=== PATIENT | female | born 1950 | race Caucasian/White ===

== ENCOUNTER 2016-10-05 10:52 | Inpatient (IN) | payer MEDICARE ==
[2016-10-05] MEDS ORDERED: Morphine INJ* 2 MG/ML 1 ML SYRINGE IV PRN (12:41)
[2016-10-05] MEDS: NS 0.9% 1000 ML* 1,000 ML IV SCH (13:27)
[2016-10-05] MEDS ORDERED: Ondansetron INJ* 2 MG/ML VIAL IV PRN (13:30)
[2016-10-05] MEDS ORDERED: Albuterol 2.5 MG/3 ML NEB.SOL* (0.083%) INH PRN (13:59)
[2016-10-05] MEDS ORDERED: Pantoprazole IV* 40 MG IV SCH (14:00)
[2016-10-05] MEDS: Heparin VIAL(*) 5000 UNITS/ML VIAL (FIVE THOUSAND) SUBCUT SCH ×2 (14:59→20:48)
[2016-10-05] MEDS: Metoprolol Tartrate IV* 1 MG/ML 5 ML VIAL IV SCH ×2 (14:59→20:47)
[2016-10-05 15:28] LABS: Hematocrit 32 % (35-47); Hemoglobin 9.9 g/dl (12.0-16.0); Mean Corpuscular HGB Conc 31 g/dl (31-36); Mean Corpuscular Hemoglobin 27 pg (27-31); Mean Corpuscular Volume 85 fL (80-97); Mean Platelet Volume 9 um3 (7.4-10.4); Red Blood Count 3.72 10^6/ul (4.0-5.4); Red Cell Distribution Width 15 % (10.5-15); White Blood Count 7.3 10^3/ul (3.5-10.8)
--- NOTE | 2016-10-05 15:28 | HP ---
HISTORY AND PHYSICAL: ADDENDUM: Ms. Means is a 66-year-old female with history of obesity, status post laparoscopic gastri c band placement and later on in 2005, she had also gastric bypass surgery as well as revision of th e above mentioned surgeries who presented to the [facility] complaining of nausea, vomiting, and abdominal pain. She was transferred from [facility] to our facility after she was noted to have elevated liver function tests as well as lipase. She is being admitted to our facility. e is going to be placed on electronic device monitor bed since she complained of chest pain with her nausea for further monitoring. As per [facility], her troponin was negative and EKG unremarkable . The patient is also going to be consulted by Surgery. At this point, the presumed diagnosis may be small bowel obstruction due to pancreatitis. She may need an MRCP to evaluate her common bile duct. She is status post cholecystectomy in the past. For further details of the patient's presentation and plan, please see history and physical dictated by Cedric Nascimento on 10/05/16, with which I agree. [id number]/[facility] #: [id number]
[2016-10-05 15:39] LABS: Albumin 3.8 g/dL (3.2-5.2); BUN/Creatinine Ratio 17.4 (8-20); Calcium 8.5 mg/dL (8.6-10.3); EGFR African American 84.9 (>60); Globulin 2.3 g/dL (2-4); Potassium 4.4 mmol/L (3.5-5.0); Total Bilirubin 0.7 mg/dL (0.2-1.0); Total Protein 6.1 g/dL (6.4-8.9)
--- NOTE | 2016-10-05 16:01 | CONS ---
CC: Dr. Jodie Resendiz; [facility] SURGICAL CONSULTATION REPORT: DATE OF CONSULT: 10/05/16 LOCATION: The patient seen in room 419. HISTORY OF PRESENT ILLNESS: I was contacted by the hospitalist service to evaluate Ms. Josefa Means, a 66-year-old female, who presented to the [facility] earlier today with acute onset of upper abdominal pain accompanied with nausea, vomiting, and retching. She was admitted and transferred to our hospital for surgical consultation. The patient describes being in a regular good health until yesterday approximately 4 p.m. She start ed with nausea and vomiting. This again advanced her retching after she emptied from vomiting. The vomitus consisted only of liquids, was nonbloody, nonbilious. The patient denied any previous karen lar symptoms. She is status post open gastric bypass procedure in the 90s out of [place]. She had do ne well for the most part, losing weight and keeping it off. The patient denies any fevers or chills. Her pain is relieved with narcotics and currently, she fee ls a lot better. She has been passing flatus and had a recent small bowel movement while in the [facility]. The patient is also complaining of onset of chest pain and this has led to cardiac workup and the pa tient will be transferred to telemetry unit shortly. The patient took 81 mg of aspirin hoping it would help her with her discomfort, it did not make a di fference. Pain was nonradiating, mostly in the epigastrium and left upper quadrant. She describes being bloated. PAST MEDICAL HISTORY: Hypertension, anxiety, hypothyroidism, morbid obesity. PAST SURGICAL HISTORY: Appendectomy, hysterectomy, cholecystectomy, open gastric bypass procedure w ith followup abdominoplasty with complication of wound infection after the abdominoplasty which took place approximately 7 years ago. The patient has completely healed from that. She has also had kn ee surgery and breast reduction. MEDICATIONS: Hospital medication list was reviewed, does include: 1. Heparin IV and Zofran which we will discontinue. 2. She is on famotidine. SOCIAL HISTORY: She lives with her . She is a nonsmoker. She is retired. REVIEW OF SYSTEMS: No shortness of breath. No fevers or chills. No visual disturbances. Chest pa in as described. No palpitations however. GI symptoms as described. No dysuria. No bleeding or c lotting disorders. The patient has poor exercise tolerance, can walk up a flight of stairs only. N o change in bowel habits. PHYSICAL EXAM: She is afebrile. Vital signs are stable here in the hospital. Review of the [facility] chart at [place] was also suggestive of afebrile course. She is alert and oriented x3. She is in no apparent distress, lying on the bed comfortable. Head, ears, eyes, nose, and throat: Normoceph alic, atraumatic. Sclerae anicteric. Mucous membranes are moist. Neck: No lymphadenopathy. Abdome n is soft, obese. She does have a BMI of 43. She is tender on both light and deep palpation in the mid epigastrium and at the left upper quadrant with bloating and hyperactive bowel sounds in the le ft upper quadrant. Negative rebound. Healed upper midline incision. Healed but signs of prolonged scarring at the lower abdominal wound. No hernias are appreciated. Rectal Exam: Not performed. Mild CVA tenderness on the left. Extremities: Within normal limits with no pitting edema. No calf tenderness. DIAGNOSTIC STUDIES/LAB DATA: Labs were performed at [place] and these were reviewed and they inclu de an H and H of 12/40 with a white count of 9. Alk phos and transaminase is mildly elevated. BUN and creatinine ratio of 18 with a creatinine of 1.1. The patient underwent a CT scan of the abdomen and pelvis with p.o. and IV contrast. These images w ere reviewed. There were no reconstructions. We could appreciate a gastric pouch extending to a sm all bowel loop that would be the Jamia limb. The patient's stomach remnant does show air and fluid. The small bowel otherwise is not significantly dilated. There is contrast extending to the cecum. There is no free fluid. Small seroma in the subcutaneous space. On coronal views, it does appear that the pancreatic limb is mildly dilated. There is no contrast i n this at least at the duodenal level. IMPRESSION: Over 20 years status post open gastric bypass procedure with acute onset of abdominal p ain and retching that seems to be subsiding, unclear etiology. The patient does not appear to be obs tructed based on symptoms of bowel movements and passage of flatus; however, I am concerned about th e possibility of an internal hernia. Plan will be for watchful waiting, IV fluids, and n.p.o. statu s. I would like to review the CT scan with the radiology department here. We should repeat her lab s including a lipase level as there was question about this being elevated. We should look toward e followup x-ray tomorrow morning. I would like her to avoid antiemetics. She should get narcotics as needed. No need for NG tube placement given the patient's gastric bypass status. We will watch her closely. She does represent a complex patient with a complex abdomen and surgical history, but may require exploratory laparotomy and this would represent a significant procedure with high risks in this patient. Plan for now is watchful waiting. She shows no signs of sepsis and we will follow along closely. [id number]/[facility] #: [id number]
[2016-10-05] MEDS: Morphine INJ* 4 MG/ML 1 ML SYRINGE IV PRN (18:25)
--- NOTE | 2016-10-05 19:09 | HP ---
HISTORY AND PHYSICAL: DATE OF ADMISSION: 10/05/16 PRIMARY CARE PROVIDER: Dr. Resendiz. ATTENDING PHYSICIAN WHILE IN THE HOSPITAL: Dr. Yecenia Ram* (report being dictated by Cedric Nascimento, COLLEEN). CHIEF COMPLAINT: 1. Abdominal pain. 2. Nausea and vomiting. 3. Chest pain. HISTORY OF PRESENTING ILLNESS: Ms. Means is a 66-year-old female patient. She has a history of hypertension, anxiety, depression, hypothyroidism, peptic ulcer disease, history of a mild KS in the past requiring no stents, and history of TAWANNA, wears CPAP with O2 at night. She comes in to the [facility] today stating that around yesterday afternoon she started having some abdominal discomfort around 4 to 5 o'clock. She said the pain got much worse last night. She started vomiting. She felt the pain was a sharp, stabbing, lightning bolt of pain in the center of her abdomen, that got progressively worse throughout the night and she started vomiting. She vomited she thinks about 20 times. She states she also was not only having some chest discomfort in the middle of the night last night, that was described as a pressure in her chest down her arm with associated nausea, vomiting, with the abdominal pain had come first. She said that she had been feeling more bloated than normal. She went to [facility], was evaluated and ultimately a CT scan did show a small bowel obstruction. The patient was transferred to the [facility]. It was reported by [facility] that the patient's lipase was 600, although I do not see this on the labs here. The patient denies chest pain currently. She states she is still having some abdominal pain, it is mostly in the center of her abdomen. She states that she did have a bowel movement when she got here at [facility] and states that the discomfort was improved with the morphine. She was evaluated at [facility]. We were asked to evaluate for admission. She denies having any shortness of breath. Denies having any cough or fevers. Denies having any chills. REVIEW OF SYSTEMS: There is no documented fever. She denied having any significant weight change. There was no double vision. No ear discharge. She denies having any rhinorrhea. No sore throat. No thyroid enlargement. There was chest pain from HPI. There was abdominal pain from HPI. There was some episode of nausea and vomiting from HPI. No dysuria, no frequency. No seizure. No loss of consciousness. Review of 14 systems completed, all others negative. PAST MEDICAL HISTORY: Significant for: 1. Hypertension. 2. Anxiety. 3. Depression. 4. Hypothyroidism. 5. Peptic ulcer disease. 6. History of KS. 7. TAWANNA. 8. Chronic pain. PAST SURGICAL HISTORY: Includes: 1. Appendectomy. 2. Cholecystectomy. 3. Hernia repair. 4. Gastric bypass. 5. Breast reduction. 6. Abdominal wound that required 1 year of wound care followup and took 1 year to heal according to the patient from a previous abdominal surgery. 7. Right knee arthroscopy. 8. Hysterectomy. 9. Right lower extremity ORIF. MEDICATIONS: Home meds include: 1. Atarax 50 mg at bedtime as needed. 2. Percocet 1 tablet p.o. every 4 hours as needed. 3. Valium 10 mg p.o. every 8 hours as needed. 4. Coreg 6.25 mg p.o. b.i.d. 5. Remeron 45 mg at bedtime. 9. Reglan 10 mg p.o. every 6 hours as needed. 10. Synthroid 75 mcg daily. 11. Amlodipine 5 mg p.o. b.i.d. 12. Zoloft 100 mg p.o. daily. 13. Morphine ER 120 mg p.o. b.i.d. 14. Lisinopril 20 mg p.o. daily. ALLERGIES TO MEDICATIONS: Include HALDOL, MUCINEX, BACTRIM. FAMILY HISTORY: The mother had a history of KS and diabetes, father had a history of diabetes. SOCIAL HISTORY: She is a former smoker. She does not drink alcohol. She has no children. Surrogate decision maker is her . PHYSICAL EXAMINATION GENERAL: At this time, Ms. Means is a 66-year-old female patient. She is sitting in the hospital bed, she does not appear to be in any acute distress. VITAL SIGNS: Blood pressure 137/77, pulse of 85, respirations 16, O2 sat 98%, temperature 97.4 . HEENT: Head is atraumatic and normocephalic. Eyes: EOMs are intact. Sclerae anicteric and not pale. Throat: Oral mucosa appears to be moist. No oropharyngeal erythema. NECK: Supple. LUNGS: Clear to auscultation bilaterally. No wheezes, rales, or rhonchi. HEART: Sounds S1, S2. Regular rate and rhythm. No murmurs, rubs, or gallops. ABDOMEN: Obese. There was tender in the left lower quadrant and the right upper quadrant. Bowel sounds were hypoactive. EXTREMITIES: Pulses were 2+ throughout. No peripheral edema. She has 5/5 strength. NEUROLOGIC: She is awake, alert, and oriented x3. Speech is clear. Tongue midline. No gross focal deficits. No facial droop. SKIN: Intact. She does have an old abdominal scarring to the midline of her abdomen. DIAGNOSTIC STUDIES/LAB DATA: Revealed sodium 139, potassium 4.2, chloride of 104, bicarb 22, BUN 20, creatinine 1.1, glucose 148, mag 1.7, AST 297, ALT 94, alk phos 275, CK 44, CK-MB 1.7. Troponin 0.01. BNP is 33. Albumin 4.6. PTT was 11. INR of 1.07. WBC 9.1, RBC 4.49, hemoglobin 12.2, hematocrit of 39.6, platelet count of 176. She had a CT of the abdomen and pelvis, it showed impression, postsurgical and chronic changes as described above with evidence of new proximal small bowel obstruction as described. She had an EKG which showed a normal sinus rhythm with a rate of 78, no ST elevations or T-wave inversions were noted. It was reviewed with an EKG from 4 years ago and it appears to be similar. Old medical records were reviewed. ASSESSMENT AND PLAN: Ms. Means is a 66-year-old female patient, originally presented to [facility] with complaints of abdominal discomfort. Under report from [facility], there was report that her lipase was in the 600, but I do not see that on the paperwork that came over. In addition to this, there is again the CT scan that shows small bowel obstruction. She should be admitted under inpatient status for: 1. Small bowel obstruction, abdominal pain. Again, I am going to repeat her labs over here at [facility] to reevaluate her amylase and lipase. Certainly, she could have pancreatitis contributing to the abdominal pain, also is a question of obstruction. I do think to start, we will get surgical evaluation. She is not vomiting now. She states her pain feels better, but she is pretty tender on exam. My plan would be to hold on NG tube until surgical evaluation. We will go head and give her antiemetics, pain management, IV fluids, and await report labs and continue to follow. 2. Chest pain. At this point, I will cycle troponins. We will get an echo as well and we will get an EKG, place her on telemetry and we will monitor. 3. Hypertension. She will be on IV Lopressor. 4. Anxiety and depression. Continue supportive care. 5. Hypothyroid. She should be on IV Synthroid. 6. Peptic ulcer disease. I have ordered PPI via IV. 7. Obstructive sleep apnea, I have ordered CPAP. 8. DVT prophylaxis. She is on heparin subcu. 9. Code status. Full code. 10. Fluids, electrolytes and nutrition. She is NPO pending surgical evaluation. TIME SPENT: On the admission was approximately 70 minutes, greater than half the time was spent [id number] with the patient obtaining my history and physical, other half time was spent going over the plan of care with the patient and implementing plan of care. I discussed the plan of care with my attending, Dr. Ram, she is in agreement. CEDRIC NASCIMENTO NP ADDENDUM TO HISTORY AND PHYSICAL: Ms. Means is a 66-year-old female with history of obesity, status post laparoscopic gastric band placement and later on in 2005, she had also gastric bypass surgery as well as revision of the above mentioned surgeries who presented to the [facility] complaining of nausea, vomiting, and abdominal pain. She was transferred from [facility] to our facility after she was noted to have elevated liver function tests as well as lipase. She is being admitted to our facility. She is going to be placed on scaffolding helper bed since she complained of chest pain with her nausea for further monitoring. As per [facility], her troponin was negative and EKG unremarkable there. The patient is also going to be consulted by Surgery. At this point, the presumed diagnosis may be small bowel obstruction due to pancreatitis. She may need an MRCP to evaluate her common bile duct. She is status post cholecystectomy in the past. For further details of the patient's presentation and plan, please see history and physical dictated by Cedric Nascimento on 10/05/16, with which I agree. Yecenia Ram MD CC: Dr. Resendiz; Dr. Duarte* [id number] #: [id number] #: [id number] [facility] HOSPITALElodia
[2016-10-06] MEDS: Morphine INJ* 4 MG/ML 1 ML SYRINGE IV PRN ×7 (00:26→21:50)
[2016-10-06] MEDS: NS 0.9% 1000 ML* 1,000 ML IV SCH ×3 (00:28→17:08)
[2016-10-06] MEDS: Metoprolol Tartrate IV* 1 MG/ML 5 ML VIAL IV SCH ×3 (02:14→13:26)
[2016-10-06 05:20] LABS: Hematocrit 28 % (35-47); Hemoglobin 8.9 g/dl (12.0-16.0); Mean Corpuscular HGB Conc 32 g/dl (31-36); Mean Corpuscular Hemoglobin 27 pg (27-31); Mean Corpuscular Volume 85 fL (80-97); Mean Platelet Volume 10 um3 (7.4-10.4); Red Blood Count 3.25 10^6/ul (4.0-5.4); Red Cell Distribution Width 15 % (10.5-15); White Blood Count 4.9 10^3/ul (3.5-10.8)
[2016-10-06 05:25] LABS: Albumin 3.4 g/dL (3.2-5.2); BUN/Creatinine Ratio 15.5 (8-20); Calcium 8.4 mg/dL (8.6-10.3); EGFR African American 87.2 (>60); EGFR Non-African American 67.8 (>60); Globulin 2.1 g/dL (2-4); Potassium 3.8 mmol/L (3.5-5.0); Total Bilirubin 0.8 mg/dL (0.2-1.0); Total Protein 5.5 g/dL (6.4-8.9)
[2016-10-06] MEDS: Levothyroxine INJ* 100 MCG/5 ML VIAL IV SCH (06:06)
[2016-10-06] MEDS: Heparin VIAL(*) 5000 UNITS/ML VIAL (FIVE THOUSAND) SUBCUT SCH ×3 (06:08→21:50)
[2016-10-06] MEDS ORDERED: Perflutren Lipid Microsphere* 3 ML VIAL ONE (08:05)
[2016-10-06] MEDS ORDERED: Pneumococcal Vac Polyvalent* 0.5 ML VIAL IM ONE (09:00)
--- NOTE | 2016-10-06 09:17 | ECHO ---
Patient: JENNIFER MENDEZ [facility] Rec#: [id number] : 1950 Date: 10/06/2016 Age: 66y Height: 152.4 cm / 60.0 in Weight: 99.34 kg / 218.9 lbs Sex: F BSA: 1.94 Room#: [facility] Admit Date#: 10/05/2016 Type: Inpatient Referring: Cedric Nascimento NP Reading: Demetrius Esquivel MD Ballet Teacher: Shannon Mosqueda,CARMELLACS,RDMS CC: Marlen Resendiz MD Transthoracic Echocardiogram Indication: CP BP: 151/88 HR: 55 Rhythm: NSR with PACs Indications Chest Pain Findings History: HTN, heart murmur, family history of heart disease Technical Comments: The study is technically limited due to poor acoustic windows. Completed 0945 Left Ventricle: The left ventricular chamber size is normal. Mild concentric left ventricular hypertrophy is observed. Global left ventricular wall motion and contractility are within normal limits. The estimated ejection fraction is 55-60%. There is no consistent Doppler evidence of clinically significant diastolic dysfunction. Left Atrium: The left atrial chamber size is normal. Right Ventricle: The right ventricular chamber size and systolic function are within normal limits. Right Atrium: The right atrial cavity size is normal. Aortic Valve: The aortic valve is trileaflet. The aortic valve leaflets are mildly thickened. There is no evidence of aortic regurgitation. There is mild aortic stenosis. The mean gradient of the aortic valve is 8 mmHg. The aortic valve area, by peak velocities, is calculated at 1.6 cm2. Mitral Valve: The mitral valve leaflets are mildly thickened. There is mild mitral regurgitation. There is no evidence of mitral stenosis. Tricuspid Valve: The tricuspid valve leaflets are normal. There is mild tricuspid regurgitation. There is evidence of mild pulmonary hypertension. Pulmonic Valve: The pulmonic valve structure is not well visualized. Pericardium: There is no significant pericardial effusion. Aorta: The ascending aorta is not well visualized. There is no dilatation of the aortic arch. There is no dilation of the aortic root. Pulmonary Artery: The main pulmonary artery is not well visualized. Venous: The inferior vena cava is not visualized. Contrast: Definity was used to optimize study. A total of 3 ml was used. Conclusions The study is technically limited due to poor acoustic windows. Contrast was used to define LV systolic function. Mild concentric left ventricular hypertrophy is observed. Global left ventricular wall motion and contractility are within normal limits. The estimated ejection fraction is 55-60% in limited views. No significvant valvular disease: There is mild aortic stenosis. The mean gradient of the aortic valve is 8 mmHg. There is mild mitral regurgitation. There is mild tricuspid regurgitation. There is evidence of mild pulmonary hypertension. Measurements Name Value Normal Range RVIDd (AP) 2D 2.4 cm (0.9 - 2.6) RVDdMajor (2D) 3.3 cm (2.2 - 4.4) RAd ISD 4CH 4.5 cm (3.4 - 4.9) RA (A4C)W 4.4 cm (2.9 - 4.6) IVSd (2D) 1.4 cm (0.6 - 1) LVPWd (2D) 1.1 cm (0.6 - 1) LVIDd (2D) 3.2 cm (3.6 - 5.4) LVIDs (2D) 2.5 cm - LV FS (2D) 23 % (25 - 45) Aortic Annulus 2.1 cm (1.4 - 2.6) Ao root diameter (2D) 2.6 cm (2.1 - 3.5) Aortic arch 3 cm (1.8 - 3.4) LA dimension (AP) 2D 3.9 cm (2.3 - 3.8) LAd ISD 4CH 4.6 cm (2.9 - 5.3) LA ISD 4CH W 4.3 cm (2.5 - 4.5) Name Value Normal Range LA ESV SP 4CH (A/L) 71.03 ml - LA ESV SP 2CH (A/L) 40.48 ml - LA ESV BP (A/L) 55.45 ml - LA ESV BP (A/L) index 29 ml/m2 - LA ESV SP 4CH (MOD) 67.55 ml - LA ESV SP 2CH (MOD) 38.1 ml - Name Value Normal Range MV E-wave Vmax 1.2 m/sec - MV deceleration time 209 msec - MV A-wave Vmax 0.9 m/sec - MV E:A ratio 13 ratio - P. vein S-wave Vmax 0.5 m/sec - P. vein D-wave Vmax 0.5 m/sec - P. vein A-wave duration 125 msec - LV septal e' Vmax 0.08 m/sec - LV lateral e' Vmax 0.09 m/sec - LV E:e' septal ratio 15 ratio - LV E:e' lateral ratio 13.4 ratio - Name Value Normal Range AV Vmax 2.1 m/sec - AV VTI 48.1 cm - AV peak gradient 18 mmHg - AV mean gradient 8 mmHg - LVOT diameter 2 cm - LVOT Vmax 1.1 m/sec - LVOT VTI 22.3 cm - LVOT peak gradient 5 mmHg - LVOT mean gradient 2.2 mmHg - DOI (VTI) 0.5 ratio - GOKUL (continuity Vmax) 1.6 cm2 - GOKUL (continuity VTI) 1.5 cm2 - EVAN Vmax 0.7 m/sec - Name Value Normal Range MV Vmax 1.4 m/sec - MV VTI 40 cm - MV peak gradient 8 mmHg - MV mean gradient 1.4 mmHg - MV PHT 52 msec - MVA (PHT) 4.2 cm2 - Name Value Normal Range TR Vmax 2.9 m/sec - TR peak gradient 34 mmHg - RAP 8 mmHg - RVSP 42 mmHg - Name Value Normal Range PV Vmax 0.8 m/sec - PV peak gradient 2.6 mmHg -
[2016-10-06] MEDS: Morphine TAB Extended Release (*) 15 MG TAB.ER PO SCH ×2 (10:47→22:59)
--- NOTE | 2016-10-06 11:10 | RAD ---
INDICATION: Small bowel obstruction, follow-up. COMPARISON: Correlation is made with a prior outside CT of the abdomen and pelvis from October 05, 2016. TECHNIQUE: Supine and upright views of the abdomen were obtained. FINDINGS: Contrast is seen in nondistended colon from the prior CT study. There is mild small bowel distention which is improved from the prior study consistent with a resolving small bowel obstruction. No free intraperitoneal air is seen. There are multiple surgical clips and sutures in the left upper quadrant and surgical clips within the pelvis. IMPRESSION: FINDINGS MOST CONSISTENT WITH A RESOLVING SMALL BOWEL OBSTRUCTION.
--- NOTE | 2016-10-06 12:50 | PN ---
Progress Note - Progress Note SOAP: Subjective: Pt eleonora dn examined earlier today. She remains NPO. She feels much better than yesterday, but still with upper abdominal pain requiring round the clock narcotics. Positve flatus. No BM Urine is dark in color. She has no appetite Objective: af vss abdo: obese/distended/tender on palpation at upper abdomen. NO rebound normoactive BS Labs reviewed. lipase elevated; normal wbc Assessment: s/p gastric bypass, with sudden onset of abdominal pain, now with dilated biliopancreatic limb in pt with complex abdominal surgical history. 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 Plan: PO pain control Pt would benefit from drainage of stomach remnant. I've recommended percutaneous procedure with IR, and discussed this with Dr Rivera. Likely on schedule.
[2016-10-06] MEDS: LORazepam INJ* 2 MG/ML 1 ML VIAL IV PUSH PRN ×2 (14:43→19:49)
--- NOTE | 2016-10-06 17:40 | PN ---
Subjective Date of Service: 10/06/16 Interval History: Denies flatus or BM Abdominal pain controlled with IV morphine but requiring every 3-4 hrs No appetite No N/V, CP, SOB Objective Active Medications: Albuterol (Ventolin 2.5 Mg/3 Ml Neb.Aminah*) 2.5 mg INH Q2H PRN PRN Reason: SOB/WHEEZING Last Admin: 10/06/16 06:05 Dose: 2.5 mg Heparin Sodium (Porcine) (Heparin Vial(*)) 5,000 units SUBCUT Q8HR [facility] Last Admin: 10/06/16 13:49 Dose: 5,000 units Sodium Chloride (Ns 0.9% 1000 Ml*) 1,000 mls @ 125 mls/hr IV PER RATE [facility] Last Admin: 10/06/16 17:08 Dose: 125 mls/hr Famotidine 20 mg/ Sodium (Chloride) 102 mls @ 408 mls/hr IVPB DAILY [facility] Last Admin: 10/06/16 08:37 Dose: 408 mls/hr Levothyroxine Sodium (Synthroid Inj*) 37.5 mcg IV 0600 [facility] Last Admin: 10/06/16 06:06 Dose: 37.5 mcg Lorazepam (Ativan Inj*) 0.5 mg IV PUSH Q4H PRN PRN Reason: ANXIETY Last Admin: 10/06/16 14:43 Dose: 0.5 mg Metoprolol Tartrate (Lopressor Iv*) 5 mg IV Q6H [facility] Last Admin: 10/06/16 13:26 Dose: Not Given Morphine Sulfate (Ms Contin(*)) 15 mg PO Q12H [facility] Last Admin: 10/06/16 10:47 Dose: 15 mg Morphine Sulfate (Morphine Inj (Syringe)*) 4 mg IV Q3H PRN PRN Reason: PAIN Last Admin: 10/06/16 15:41 Dose: 4 mg Ondansetron HCl (Zofran Inj*) 4 mg IV Q6H PRN PRN Reason: NAUSEA Vital Signs 10/05/16 10/05/16 10/05/16 18:25 19:24 19:25 Temperature 99.0 F Pulse Rate 71 Respiratory 16 14 17 Rate Blood Pressure 140/79 (mmHg) O2 Sat by Pulse 94 Oximetry 10/05/16 10/05/16 10/05/16 20:00 20:11 23:28 Temperature 98.8 F 97.5 F Pulse Rate 70 64 Respiratory 17 18 20 Rate Blood Pressure 136/64 134/75 (mmHg) O2 Sat by Pulse 94 98 Oximetry 10/06/16 10/06/16 10/06/16 00:26 01:26 04:01 Temperature 97.9 F Pulse Rate 63 Respiratory 18 17 20 Rate Blood Pressure 139/76 (mmHg) O2 Sat by Pulse 99 Oximetry 10/06/16 10/06/16 10/06/16 04:54 05:54 06:08 Temperature Pulse Rate 56 Respiratory 18 20 Rate Blood Pressure (mmHg) O2 Sat by Pulse 99 Oximetry 10/06/16 10/06/16 10/06/16 07:15 08:32 08:59 Temperature 98.5 F Pulse Rate 59 Respiratory 17 18 16 Rate Blood Pressure 151/88 (mmHg) O2 Sat by Pulse 97 97 Oximetry 10/06/16 10/06/16 10/06/16 09:51 09:59 10:47 Temperature 98.3 F Pulse Rate 61 Respiratory 16 16 Rate Blood Pressure 151/79 (mmHg) O2 Sat by Pulse 97 Oximetry 10/06/16 10/06/16 10/06/16 12:00 12:17 12:35 Temperature 98.0 F Pulse Rate 57 55 Respiratory 16 16 17 Rate Blood Pressure 162/72 (mmHg) O2 Sat by Pulse 98 97 Oximetry 10/06/16 10/06/16 10/06/16 13:35 14:43 15:12 Temperature 98.7 F Pulse Rate 59 Respiratory 15 22 14 Rate Blood Pressure 179/73 (mmHg) O2 Sat by Pulse 95 Oximetry 10/06/16 10/06/16 10/06/16 15:41 15:49 17:06 Temperature Pulse Rate Respiratory 15 15 Rate Blood Pressure 158/73 (mmHg) O2 Sat by Pulse Oximetry Oxygen Devices in Use Now: None Appearance: NAD Eyes: No Scleral Icterus, PERRLA Ears/Nose/Mouth/Throat: Clear Oropharnyx, - - dry Neck: NL Appearance and Movements; NL JVP Respiratory: Symmetrical Chest Expansion and Respiratory Effort, Clear to Auscultation Cardiovascular: RRR Abdominal: - - soft, TTP greatest left upper/lower, hypoactive BS on right, no rebound/guarding Lymphatic: No Cervical Adenopathy, No Axillary Adenopathy Extremities: - - trace LE edema Neurological: Alert and Oriented x 3 Result Diagrams: 10/06/16 04:58 10/06/16 04:43 Microbiology and Other Data: Microbiology 10/05/16 12:44 Nasal Screen MRSA (PCR)(DARNELL) - Final Nasal Mrsa Negative Assess/Plan/Problems-Billing Assessment: 66 yo F h/o multiple surgeries including gastric bypass p/w N/V, abdominal pain with c/f afferent limb syndrome - Patient Problems (1) Afferent loop syndrome Comment: Plan perc drainage of stomach remnant tomorrow NPO pain control (2) TAWANNA (obstructive sleep apnea) Comment: CPAP (3) Chest pain Comment: ADAN negative (4) Hypertension Comment: hydralazine SBP >180 or DBP> 110 (5) DVT prophylaxis Comment: HSQ
[2016-10-06] MEDS ORDERED: Metoprolol Tartrate IV* 1 MG/ML 5 ML VIAL IV PRN (17:42)
[2016-10-06] MEDS: hydrALAZINE IV* 20 MG/ML VIAL IV SLOW PU PRN (19:53)
[2016-10-07] MEDS: LORazepam INJ* 2 MG/ML 1 ML VIAL IV PUSH PRN ×3 (00:23→18:02)
[2016-10-07] MEDS: Morphine INJ* 4 MG/ML 1 ML SYRINGE IV PRN ×3 (01:57→08:34)
[2016-10-07] MEDS: NS 0.9% 1000 ML* 1,000 ML IV SCH ×2 (01:59→10:07)
[2016-10-07] MEDS: Levothyroxine INJ* 100 MCG/5 ML VIAL IV SCH (05:25)
[2016-10-07] MEDS: Heparin VIAL(*) 5000 UNITS/ML VIAL (FIVE THOUSAND) SUBCUT SCH (05:26)
[2016-10-07] MEDS ORDERED: Famotidine IV* 10 MG/ML 2 ML (20 mg) ONE (08:26)
[2016-10-07] MEDS: HYDROmorphone* 1 MG/ML 1 ML SYR IV SLOW PU PRN ×4 (10:12→21:08)
[2016-10-07] MEDS: Morphine TAB Extended Release (*) 15 MG TAB.ER PO SCH ×2 (11:14→22:24)
[2016-10-07 12:18] LABS: Hematocrit 29 % (35-47); Mean Corpuscular HGB Conc 31 g/dl (31-36); Mean Corpuscular Hemoglobin 27 pg (27-31); Mean Corpuscular Volume 85 fL (80-97); Mean Platelet Volume 9 um3 (7.4-10.4); Red Blood Count 3.39 10^6/ul (4.0-5.4); Red Cell Distribution Width 15 % (10.5-15); White Blood Count 3.6 10^3/ul (3.5-10.8)
[2016-10-07] MEDS: hydrALAZINE IV* 20 MG/ML VIAL IV SLOW PU PRN (14:55)
[2016-10-07] MEDS ORDERED: fentaNYL* 50 MCG/ML 5 ML VIAL (250 MCG VIAL) ONE (15:18)
[2016-10-07] MEDS ORDERED: Midazolam* 1 MG/ML 5 ML VIAL (5 MG) ONE (15:19)
--- NOTE | 2016-10-07 15:31 | PN ---
Subjective Date of Service: 10/07/16 Interval History: Pt seen with at bedside Discussed care with Dr. Duarte and radiology department Abdominal pain increasing. Morphine no longer helping. Increased to dilaudid with relief. No N/V while NPO. Feels increasingly bloated Objective Active Medications: Albuterol (Ventolin 2.5 Mg/3 Ml Neb.Aminah*) 2.5 mg INH Q2H PRN PRN Reason: SOB/WHEEZING Last Admin: 10/06/16 06:05 Dose: 2.5 mg Hydralazine HCl (Apresoline Iv*) 5 mg IV SLOW PU Q6H PRN PRN Reason: SYSTOLIC BP GREATER THAN: Last Admin: 10/06/16 19:53 Dose: 5 mg Hydromorphone HCl (Dilaudid Iv*) 1 mg IV SLOW PU Q3H PRN PRN Reason: PAIN Last Admin: 10/07/16 13:16 Dose: 1 mg Famotidine 20 mg/ Sodium (Chloride) 102 mls @ 408 mls/hr IVPB DAILY [facility] Last Admin: 10/07/16 08:33 Dose: 408 mls/hr Sodium Chloride (Ns 0.9% 1000 Ml*) 1,000 mls @ 75 mls/hr IV PER RATE [facility] Last Admin: 10/07/16 10:07 Dose: 75 mls/hr Levothyroxine Sodium (Synthroid Inj*) 37.5 mcg IV 0600 [facility] Last Admin: 10/07/16 05:25 Dose: 37.5 mcg Lorazepam (Ativan Inj*) 0.5 mg IV PUSH Q4H PRN PRN Reason: ANXIETY Last Admin: 10/07/16 12:13 Dose: 0.5 mg Metoprolol Tartrate (Lopressor Iv*) 5 mg IV Q6H PRN PRN Reason: HEART RATE/PULSE GREATER THAN: Morphine Sulfate (Ms Contin(*)) 15 mg PO Q12H [facility] Last Admin: 10/07/16 11:14 Dose: 15 mg Ondansetron HCl (Zofran Inj*) 4 mg IV Q6H PRN PRN Reason: NAUSEA Vital Signs 10/06/16 10/06/16 10/06/16 15:41 15:49 17:06 Temperature Pulse Rate Respiratory 15 15 Rate Blood Pressure 158/73 (mmHg) O2 Sat by Pulse Oximetry 05/04/1410/06/16 10/06/16 18:45 19:30 19:45 Temperature 98.5 F Pulse Rate 52 Respiratory 16 14 15 Rate Blood Pressure 184/93 (mmHg) O2 Sat by Pulse 97 Oximetry 10/06/16 10/06/16 10/06/16 19:49 20:00 20:42 Temperature Pulse Rate Respiratory 15 15 14 Rate Blood Pressure 188/94 155/85 (mmHg) O2 Sat by Pulse Oximetry 10/06/16 10/06/16 10/06/16 21:50 22:59 23:43 Temperature 97.6 F Pulse Rate 58 Respiratory 16 16 20 Rate Blood Pressure 168/84 (mmHg) O2 Sat by Pulse 100 Oximetry 10/07/16 10/07/16 10/07/16 00:23 01:57 03:50 Temperature 97.3 F Pulse Rate 54 Respiratory 16 14 20 Rate Blood Pressure 155/71 (mmHg) O2 Sat by Pulse 99 Oximetry 10/07/16 10/07/16 10/07/16 05:25 06:25 07:49 Temperature 97.7 F Pulse Rate 56 Respiratory 15 16 16 Rate Blood Pressure 161/88 (mmHg) O2 Sat by Pulse 96 Oximetry 10/07/16 10/07/16 10/07/16 08:00 08:34 09:34 Temperature Pulse Rate Respiratory 18 18 18 Rate Blood Pressure (mmHg) O2 Sat by Pulse 96 Oximetry 10/07/16 10/07/16 10/07/16 09:58 10:12 11:12 Temperature Pulse Rate 56 Respiratory 22 18 16 Rate Blood Pressure (mmHg) O2 Sat by Pulse 97 Oximetry 10/07/16 10/07/16 10/07/16 11:14 11:27 12:13 Temperature 97.9 F Pulse Rate 48 Respiratory 16 16 16 Rate Blood Pressure 177/78 (mmHg) O2 Sat by Pulse 96 Oximetry 10/07/16 10/07/16 10/07/16 13:13 13:14 13:16 Temperature Pulse Rate Respiratory 16 16 16 Rate Blood Pressure (mmHg) O2 Sat by Pulse Oximetry Oxygen Devices in Use Now: None Appearance: in pain, NAD Eyes: No Scleral Icterus, PERRLA Ears/Nose/Mouth/Throat: Clear Oropharnyx, Mucous Membranes Moist Neck: NL Appearance and Movements; NL JVP, Trachea Midline Respiratory: Symmetrical Chest Expansion and Respiratory Effort, Clear to Auscultation Cardiovascular: NL Sounds; No Murmurs; No JVD, RRR Abdominal: - - +bs on left, decreased on right, distended on left, TTP greatest LUQ, no rebound/guarding Lymphatic: No Cervical Adenopathy Extremities: No Edema, No Clubbing, Cyanosis Skin: No Rash or Ulcers Neurological: Alert and Oriented x 3 Result Diagrams: 10/07/16 12:03 10/06/16 04:43 Microbiology and Other Data: Microbiology 10/05/16 12:44 Nasal Screen MRSA (PCR)(DARNELL) - Final Nasal Mrsa Negative Assess/Plan/Problems-Billing Assessment: 66 yo F h/o multiple surgeries including gastric bypass p/w N/V, abdominal pain with c/f afferent limb syndrome - Patient Problems (1) Afferent loop syndrome Comment: Plan perc drainage of stomach remnant today with Dr. Rivera NPO pain control w/ dilaudid (2) TAWANNA (obstructive sleep apnea) Comment: CPAP (3) Chest pain Comment: ADAN negative (4) Hypertension Comment: Pain contributing hydralazine SBP >180 or DBP> 110 (5) Depression Comment: restart meds when can tolerate PO (6) DVT prophylaxis Comment: HSQ
[2016-10-07 18:45] LABS: ALT 23 U/L (7-52); AST 28 U/L (13-39); Albumin 3.6 g/dL (3.2-5.2); Alkaline Phosphatase 155 U/L (34-104); Anion Gap 10 mmol/L (2-11); BUN/Creatinine Ratio 14.5 (8-20); Blood Urea Nitrogen 10 mg/dL (6-24); CO2 Carbon Dioxide 20 mmol/L (22-32); Calcium 8.7 mg/dL (8.6-10.3); Chloride 108 mmol/L (101-111); EGFR African American 109.5 (>60); EGFR Non-African American 85.1 (>60); Globulin 2.4 g/dL (2-4); Glucose 75 mg/dL (70-100); Lipase < 10 U/L (11.0-82.0); Potassium 3.3 mmol/L (3.5-5.0); Sodium 138 mmol/L (133-145)
[2016-10-08] MEDS: HYDROmorphone* 1 MG/ML 1 ML SYR IV SLOW PU PRN ×2 (00:26→19:31)
[2016-10-08] MEDS: LORazepam INJ* 2 MG/ML 1 ML VIAL IV PUSH PRN ×2 (00:31→19:33)
[2016-10-08] MEDS: HYDROmorphone* 2 MG/ML 1 ML SYR IV SLOW PU PRN ×6 (03:30→22:34)
[2016-10-08] MEDS: Levothyroxine INJ* 100 MCG/5 ML VIAL IV SCH (05:35)
[2016-10-08] MEDS: NS 0.9% 1000 ML* 1,000 ML IV SCH ×2 (05:45→22:35)
[2016-10-08 06:55] LABS: Hematocrit 30 % (35-47); Hemoglobin 9.6 g/dl (12.0-16.0); Mean Corpuscular HGB Conc 32 g/dl (31-36); Mean Corpuscular Hemoglobin 27 pg (27-31); Mean Corpuscular Volume 84 fL (80-97); Mean Platelet Volume 9 um3 (7.4-10.4); Red Blood Count 3.54 10^6/ul (4.0-5.4); Red Cell Distribution Width 15 % (10.5-15); White Blood Count 5.4 10^3/ul (3.5-10.8)
[2016-10-08] MEDS: Morphine TAB Extended Release (*) 15 MG TAB.ER PO SCH ×2 (10:23→22:32)
--- NOTE | 2016-10-08 11:31 | PN ---
Progress Note - Progress Note SOAP: Subjective: C/o left sided abdominal pain radiating LUQ to LLQ, unchanged since admission. +BM/flatus. Objective: Vital Signs Temp 97.6 F 10/08/16 03:24 Pulse 71 10/08/16 03:24 Resp 18 10/08/16 10:44 BP 170/86 10/08/16 03:24 Pulse Ox 98 10/08/16 03:24 NAD, lying in bed. Abd: obese, multiple scars, tender throughout. Intake & Output 10/07/16 10/08/16 10/08/16 18:59 06:59 18:59 Intake Total 739 714 Output Total 1150 200 Balance -411 514 Intake: IV Fluids 739 714 Famotidine 60 NS (0.9%) 679 714 Output: Urine 1150 200 Other: # Bowel Movements 1 Estimated Stool Amount Medium # Voids 2 Laboratory Results - last 24 hr 10/07/16 10/07/16 10/07/16 12:03 12:03 18:25 WBC 3.6 RBC 3.39 L Hgb 9.0 L Hct 29 L MCV 85 MCH 27 MCHC 31 RDW 15 Plt Count 109 L MPV 9 Neut % (Auto) 54.9 Lymph % (Auto) 33.0 [place] % (Auto) 8.5 Eos % (Auto) 2.7 Baso % (Auto) 0.9 Absolute Neuts (auto) 2.0 Absolute Lymphs (auto) 1.2 Absolute Monos (auto) 0.3 Absolute Eos (auto) 0.1 Absolute Basos (auto) 0 Absolute Nucleated RBC 0 Nucleated RBC % 0.1 APTT 33.4 Sodium 138 Potassium 3.3 L Chloride 108 Carbon Dioxide 20 L Anion Gap 10 BUN 10 Creatinine 0.69 Est GFR ( Amer) 109.5 Est GFR (Non-Af Amer) 85.1 BUN/Creatinine Ratio 14.5 Glucose 75 Calcium 8.7 Total Bilirubin 0.90 AST 28 ALT 23 Alkaline Phosphatase 155 H Total Protein 6.0 L Albumin 3.6 Globulin 2.4 Albumin/Globulin Ratio 1.5 Lipase < 10 L 10/08/16 06:15 WBC 5.4 RBC 3.54 L Hgb 9.6 L Hct 30 L MCV 84 MCH 27 MCHC 32 RDW 15 Plt Count 123 L MPV 9 Neut % (Auto) 60.5 Lymph % (Auto) 28.6 [place] % (Auto) 7.6 Eos % (Auto) 2.4 Baso % (Auto) 0.9 Absolute Neuts (auto) 3.3 Absolute Lymphs (auto) 1.5 Absolute Monos (auto) 0.4 Absolute Eos (auto) 0.1 Absolute Basos (auto) 0 Absolute Nucleated RBC 0.01 Nucleated RBC % 0.2 APTT Sodium Potassium Chloride Carbon Dioxide Anion Gap BUN Creatinine Est GFR ( Amer) Est GFR (Non-Af Amer) BUN/Creatinine Ratio Glucose Calcium Total Bilirubin AST ALT Alkaline Phosphatase Total Protein Albumin Globulin Albumin/Globulin Ratio Lipase CT abd/pelvis from 10/07/16 images reviewed Assessment: resolved SBO in a complex surgical patient, s/p open RYGB and multiple hernia surgeries. No evidence of abdominal wall hernia or internal hernia seen on my review of the CT scan. Plan: Trial of po intake and slowly advance as tolerated.
--- NOTE | 2016-10-08 14:04 | PN ---
Subjective Date of Service: 10/08/16 Interval History: +BM overnight Pain increasing and dialudid increased from 1 to 2 mg with relief No drain placed yesterday into remnant as it was completely collapsed. Objective Active Medications: Albuterol (Ventolin 2.5 Mg/3 Ml Neb.Aminah*) 2.5 mg INH Q2H PRN PRN Reason: SOB/WHEEZING Last Admin: 10/06/16 06:05 Dose: 2.5 mg Hydralazine HCl (Apresoline Iv*) 5 mg IV SLOW PU Q6H PRN PRN Reason: SYSTOLIC BP GREATER THAN: Last Admin: 10/07/16 14:55 Dose: 5 mg Hydromorphone HCl (Dilaudid Iv*) 1 mg IV SLOW PU Q3H PRN PRN Reason: PAIN Last Admin: 10/08/16 00:26 Dose: 1 mg Hydromorphone HCl (Dilaudid Iv*) 2 mg IV SLOW PU Q3H PRN PRN Reason: PAIN Last Admin: 10/08/16 13:09 Dose: 2 mg Famotidine 20 mg/ Sodium (Chloride) 102 mls @ 408 mls/hr IVPB DAILY [facility] Last Admin: 10/08/16 08:30 Dose: 408 mls/hr Sodium Chloride (Ns 0.9% 1000 Ml*) 1,000 mls @ 75 mls/hr IV PER RATE [facility] Last Admin: 10/08/16 05:45 Dose: 75 mls/hr Levothyroxine Sodium (Synthroid Inj*) 37.5 mcg IV 0600 [facility] Last Admin: 10/08/16 05:35 Dose: 37.5 mcg Lorazepam (Ativan Inj*) 0.5 mg IV PUSH Q4H PRN PRN Reason: ANXIETY Last Admin: 10/08/16 00:31 Dose: 0.5 mg Metoprolol Tartrate (Lopressor Iv*) 5 mg IV Q6H PRN PRN Reason: HEART RATE/PULSE GREATER THAN: Morphine Sulfate (Ms Contin(*)) 15 mg PO Q12H [facility] Last Admin: 10/08/16 10:23 Dose: 15 mg Ondansetron HCl (Zofran Inj*) 4 mg IV Q6H PRN PRN Reason: NAUSEA Vital Signs 10/07/16 10/07/16 10/07/16 17:32 18:00 18:02 Temperature Pulse Rate 63 Respiratory 20 18 Rate Blood Pressure (mmHg) O2 Sat by Pulse 97 Oximetry 10/07/16 10/07/16 10/07/16 18:53 19:00 19:02 Temperature 98 F Pulse Rate 64 Respiratory 18 17 17 Rate Blood Pressure 171/81 (mmHg) O2 Sat by Pulse 100 Oximetry 10/07/16 10/07/16 10/07/16 19:18 19:36 20:00 Temperature 98.1 F Pulse Rate Respiratory 18 14 Rate Blood Pressure (mmHg) O2 Sat by Pulse Oximetry 10/07/16 10/07/16 10/07/16 21:00 21:08 22:08 Temperature Pulse Rate 62 Respiratory 14 17 17 Rate Blood Pressure (mmHg) O2 Sat by Pulse 98 Oximetry 10/07/16 10/07/16 10/08/16 22:24 22:31 00:00 Temperature 98.3 F Pulse Rate 61 Respiratory 17 20 Rate Blood Pressure 161/75 (mmHg) O2 Sat by Pulse 99 99 Oximetry 10/08/16 10/08/16 10/08/16 00:02 00:24 00:26 Temperature 98.2 F Pulse Rate 66 Respiratory 20 20 20 Rate Blood Pressure 143/72 (mmHg) O2 Sat by Pulse 99 Oximetry 10/08/16 10/08/16 10/08/16 00:31 01:26 01:31 Temperature Pulse Rate Respiratory 18 18 18 Rate Blood Pressure (mmHg) O2 Sat by Pulse Oximetry 10/08/16 10/08/16 10/08/16 03:24 03:30 06:27 Temperature 97.6 F Pulse Rate 71 Respiratory 20 20 18 Rate Blood Pressure 170/86 (mmHg) O2 Sat by Pulse 98 Oximetry 10/08/16 10/08/16 10/08/16 06:36 06:40 07:40 Temperature Pulse Rate Respiratory 18 18 17 Rate Blood Pressure (mmHg) O2 Sat by Pulse Oximetry 10/08/16 10/08/16 10/08/16 09:57 10:23 10:44 Temperature Pulse Rate Respiratory 18 15 18 Rate Blood Pressure (mmHg) O2 Sat by Pulse Oximetry 10/08/16 10/08/16 10/08/16 11:38 12:23 12:48 Temperature 98.1 F Pulse Rate 68 Respiratory 18 Rate Blood Pressure (mmHg) O2 Sat by Pulse 96 97 Oximetry 10/08/16 10/08/16 12:50 13:09 Temperature Pulse Rate 65 Respiratory 18 18 Rate Blood Pressure (mmHg) O2 Sat by Pulse 95 Oximetry Oxygen Devices in Use Now: None Appearance: NAD Eyes: No Scleral Icterus, PERRLA Ears/Nose/Mouth/Throat: NL Teeth, Lips, Gums, Clear Oropharnyx, Mucous Membranes Moist Neck: NL Appearance and Movements; NL JVP, Trachea Midline Respiratory: Symmetrical Chest Expansion and Respiratory Effort, Clear to Auscultation Cardiovascular: RRR Abdominal: - - soft. mil distention left, TTP throughout, hypoactive BS Extremities: No Edema Skin: No Rash or Ulcers Neurological: Alert and Oriented x 3 Result Diagrams: 10/08/16 06:15 10/07/16 18:25 Microbiology and Other Data: Microbiology 10/05/16 12:44 Nasal Screen MRSA (PCR)(DARNELL) - Final Nasal Mrsa Negative Assess/Plan/Problems-Billing Assessment: 66 yo F h/o multiple surgeries including gastric bypass p/w N/V, abdominal pain with c/w afferent limb syndrome - Patient Problems (1) Afferent loop syndrome Comment: no perc drainage of stomach remnant because stomach was decompressed advance diet pain control w/ dilaudid (2) TAWANNA (obstructive sleep apnea) Comment: CPAP (3) Chest pain Comment: ADAN negative (4) Hypertension Comment: Pain contributing hydralazine SBP >180 or DBP> 110 (5) Depression Comment: restart meds when can tolerate PO (6) DVT prophylaxis Comment: HSQ
[2016-10-09] MEDS: hydrALAZINE IV* 20 MG/ML VIAL IV SLOW PU PRN ×2 (00:51→12:04)
[2016-10-09] MEDS: HYDROmorphone* 2 MG/ML 1 ML SYR IV SLOW PU PRN ×2 (01:41→07:33)
[2016-10-09] MEDS: Levothyroxine INJ* 100 MCG/5 ML VIAL IV SCH (05:42)
[2016-10-09] MEDS: LORazepam INJ* 2 MG/ML 1 ML VIAL IV PUSH PRN (07:32)
[2016-10-09 07:56] VITALS: BP 181/79
[2016-10-09] MEDS ORDERED: HYDROmorphone TAB* 2 MG PO PRN (09:32)
[2016-10-09] MEDS ORDERED: Ondansetron ODT TAB* 4 MG PO PRN (09:33)
[2016-10-09] MEDS: Morphine TAB Extended Release (*) 15 MG TAB.ER PO SCH (10:36)
[2016-10-09] MEDS ORDERED: Famotidine IV* 10 MG/ML 2 ML (20 mg) ONE (10:52)
[2016-10-09] MEDS ORDERED: Diazepam TAB(*) 10 MG PO PRN (11:09)
[2016-10-09] MEDS ORDERED: hydrOXYzine HCL TAB* 50 MG PO PRN (11:10)
[2016-10-09] MEDS ORDERED: Carvedilol TAB* 6.25 MG PO SCH (21:00)
[2016-10-09] MEDS ORDERED: Mirtazapine TAB* 15 MG PO SCH (21:00)
[2016-10-09] MEDS ORDERED: amLODIPine TAB* 5 MG PO SCH (21:00)
--- NOTE | 2016-10-10 03:06 | DS ---
DISCHARGE SUMMARY: DATE OF ADMISSION: 10/05/16 DATE OF DISCHARGE: 10/09/16 PRIMARY CARE PROVIDER: Dr. Adams. PRIMARY DIAGNOSIS: Afferent loop syndrome/small bowel obstruction. SECONDARY DIAGNOSES: Include: 1. Obstructive sleep apnea. 2. Chest pain. 3. Hypertension. 4. Depression. 5. Chronic pain syndrome. 6. Anxiety. 7. Depression. 8. Hypothyroidism. MEDICATIONS AT DISCHARGE: 1. Hydroxyzine 50 mg at bedtime as needed. 2. Percocet 5/325 one tab every 4 hours as needed for pain. 3. Diazepam 10 mg 3 times a day as needed for anxiety. 4. Carvedilol 6.25 mg twice daily. 5. Remeron 45 mg at bedtime. 6. Reglan 10 mg p.o. every 6 hours as needed. 7. Levothyroxine 75 mcg in the morning. 8. Amlodipine 5 mg twice daily. 9. Zoloft 100 mg daily. 10. Lisinopril 20 mg daily. 11. Ondansetron ODT 4 mg every 6 hours as needed for nausea. 12. Morphine ER 15 mg twice daily. 13. Hydromorphone 2 mg every 6 hours as needed for pain, dispensed 12 tabs. PERTINENT LABORATORY DATA: Lipase 201 on presentation, less than 10 prior to discharge. AST on presentation 122, on discharge 28. HISTORY OF PRESENT ILLNESS AND HOSPITAL COURSE: This is a 66-year-old female with past medical history as outlined in the history of present illness on the day of admission, presented to the hospital after being transferred from [place] with abdominal pain, nausea and vomiting. Of note, she has a CAT scan that has been scanned into our computer, it will not result if looking under her current visit, but needs to be viewed under PACS. This abdominal film was reviewed with Dr. Duarte as well as the radiologist, who were concerned for an afferent loop syndrome, status post previous gastric bypass. She has made n.p.o. and treated conservatively with pain medications as well as IV fluids. There was some concern that her stomach remnant needs to be drained. She was seen in conjunction with Dr. Rivera who brought her to insert a drain; however, CT imaging prior to procedure indicated decompression of her stomach and nothing to drain. That night prior to discharge, she had 2 bowel movements. She was advanced to clear liquids the day prior to discharge and tolerated them well with another bowel movement and flatus. The day of discharge, she was advanced to full liquids, tolerated it well. No nausea, vomiting. Continued to have flatus. Her pain was improved, although not resolved. She felt that she would be more comfortable at home taking her own medications. I advised her that she had been on high doses of Dilaudid, and she may undergo some element of withdrawal if stopped abruptly. This was the risk that she was willing to take. I advised her that I will only give her 3 days of Dilaudid to leave and she felt comfortable with this plan. We had discussed at length with the patient and her who will be cooking her foods and appropriate diet and how to advance from full liquids to soft regular diet. The patient and her were able to appropriately communicate this information back to this author. It should be noted that the patient had recent some significant stress in her life recently including the of multiple friends and family. She was seen in conjunction with [facility] for counseling, may benefit from continued counseling as an outpatient. At followup, please; 1. Evaluate for continue resolution of symptoms. 2. No other specific labs or vitals that need followup. Reasons to return to the hospital including, but not limited to, recurrent or worsening symptoms, nausea, vomiting, chest pain, shortness of breath, loss of consciousness, near loss of consciousness, abdominal bloating, bleeding from any source, inability to obtain or tolerate medications were discussed with the patient and her ; they acknowledged understanding. TIME SPENT: Greater than 60 minutes was spent on discharge of this patient, greater than half was spent [id number] with the patient. CC: Dr. Adams; Dr. Marlen Resendiz * [id number]/[facility] #: [id number] [facility]
[2016-10-10] MEDS ORDERED: Sertraline* 100 MG TAB PO SCH (09:00)
[2016-10-10] MEDS ORDERED: Lisinopril TAB* 10 MG PO SCH (09:00)
== END 2016-10-09 15:35 | disposition home or self-care (01) | DRG 390 ==
LOC: MED 12:17 → MEDTELE 15:36
PROVIDERS: ADMIT Internal Medicine; ATTEND Internal Medicine
DX: K56.60 Unspecified intestinal obstruction (principal); K27.9 Peptic ulcer, site unspecified, unspecified as acute or chronic, without hemorrhage or perforation; G47.33 Obstructive sleep apnea (adult) (pediatric); R07.9 Chest pain, unspecified; I10 Essential (primary) hypertension; F32.9 Major depressive disorder, single episode, unspecified; G89.4 Chronic pain syndrome; F41.9 Anxiety disorder, unspecified; E03.9 Hypothyroidism, unspecified; Z98.84 Bariatric surgery status; I25.2 Old myocardial infarction; Z79.899 Other long term (current) drug therapy; Z88.8 Allergy status to other drugs, medicaments and biological substances; Z83.3 Family history of diabetes mellitus; Z82.49 Family history of ischemic heart disease and other diseases of the circulatory system; Z87.891 Personal history of nicotine dependence
CPT/HCPCS: 36415; 74020; 74176; 80053; 82150; 83690; 84484; 85025; 85610; 85730; 87641; 90732; 93306; 94640; 94660; 94760; A9270-GY; J0360; J1170; J1644; J2060; J2250; J2270; J3010

== ENCOUNTER 2018-06-04 07:30 | Inpatient (IN) | payer MEDICARE ==
[2018-06-15] MEDS ORDERED: Buffered Lidocaine 1% SYRIN* 1 ML/SYRINGE INTRADERM ONE (12:59)
[2018-06-18] MEDS ORDERED: Vancomycin(*) 1,250 MG in NS 0.9% 250 ML* 250 ML IVPB SCH ×2
[2018-06-18] MEDS ORDERED: Gabapentin CAP(*) 300 MG PO ONE (06:00)
[2018-06-18] MEDS ORDERED: Famotidine IV* 10 MG/ML 2 ML (20 mg) IV ONE (06:00)
[2018-06-18] MEDS ORDERED: Lactated Ringers 1000 ML Bag* 1,000 ML IV SCH (06:00)
[2018-07-30] MEDS ORDERED: Vancomycin(*) 1,250 MG in NS 0.9% 250 ML* 250 ML IVPB SCH ×2
[2018-07-30] MEDS ORDERED: Tranexamic Acid 1,000 MG in NS 0.9% 50 ML* (outpatient use) IV SCH ×2
[2018-09-07] MEDS ORDERED: Buffered Lidocaine 1% SYRIN* 1 ML/SYRINGE INTRADERM ONE (10:50)
[2018-09-10] MEDS ORDERED: Tranexamic Acid 1,000 MG in NS 0.9% 50 ML* (outpatient use) IV SCH ×2
[2018-09-10] MEDS ORDERED: Vancomycin(*) 1,250 MG in NS 0.9% 250 ML* 250 ML IVPB SCH ×2
[2018-09-10] MEDS ORDERED: Famotidine IV* 10 MG/ML 2 ML (20 mg) IV ONE (06:00)
[2018-09-10] MEDS ORDERED: Lactated Ringers 1000 ML Bag* 1,000 ML IV SCH (06:00)
[2018-09-10] MEDS ORDERED: Famotidine IV* 10 MG/ML 2 ML (20 mg) ONE (07:38)
--- OUTSIDE RECORDS SUMMARY | 2018-09-10 08:00 | XMS REPORT | Continuity of Care Document ---
:1950 External Reference #:[id number] Author Name Marci Li Care Team Providers Name Role Phone Marlen Resendiz MD Primary Care Physician Unavailable Payers Date Identification Numbers Payment Provider Subscriber Effective: 2014 Policy Number: [id number] Medicare Blue Ppo Jennifer Mendez PayID: [id number] [address] [address] [place] [address] Expires: 2016 Policy Number: [id number] Medicaid Jennifer Mendez Group Name: 1 1 [address] PayID: [id number] [place] [address] Expires: 2014 Policy Number: [id number] Medicare Blue Ppo Jennifer Mendez PayID: [id number] [address] [address] [place] [address] Advance Directives Description No Information Available Problems Date Description Provider Status Onset: 05/08/2018 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 Active Onset: 03/06/2018 Localized, primary osteoarthritis Marc Lima M.D. Active Onset: 08/30/2016 Knee pain Marc Lima M.D. Active Family History Date Family Member(s) Observation Comments General Congestive Heart Failure (CHF) General NE General Heart Disease General Breast Cancer Social History Type Date Description Comments Sex Unknown Lives With Occupation Retired ETOH Use Denies alcohol use Tobacco Use Start: Unknown End: Unknown Patient is a former smoker Smoking Status Reviewed: 08/14/18 Patient is a former smoker Allergies, Adverse Reactions, Alerts Date Description Reaction Status Severity Comments 11/21/2014 Haldol Active 11/21/2014 Bactrim hives Active 11/21/2014 Lyrica suicidal ideations Active 08/30/2016 Azithromycin Active 08/30/2016 Musinex Active Medications Medication Date Status Form Strength Qnty SIG Indications Ordering Provider Valium Active Tablets 10mg 1 tablet by Unknown /0000 mouth tid Norvasc Active Tablets 5mg 1 by mouth Unknown /0000 bid Coreg Active Tablets 6.25mg 1 by mouth Unknown /0000 twice a day Levothyroxine Active Tablets 75mcg 1 by mouth Unknown Sodium /0000 every day Lisinopril Active Tablets 20mg 1 by mouth Unknown /0000 bid Clotrimazole Active Cream 1% apply twice Unknown /0000 daily Ventolin HFA Active Aerosol 108(90Bas 2 puffs by Unknown /0000 e) mouth four mcg/Act times a day as needed Percocet Active Tablets 10-325mg 1 tab by Unknown /0000 mouth every 6 hours as needed pain Ondansetron HCL Active Tablets 8mg take 1 by Unknown /0000 mouth as need 1-2 x per day for nausea Ranitidine HCL Active Tablets 150mg take one Unknown /0000 tablet @ pm Gabapentin Active Capsules 100mg 1 capsule Unknown /0000 at hs when needed for burning in feet Zolpidem Tartrate Active Tablets 10mg 1 tab by Unknown /0000 mouth every night at bedtime as needed Docusate Sodium Active Tablets 100mg 1 cap am Unknown /0000 and pm Aripiprazole Active Tablets 2mg 1 tab in am Unknown /0000 Mirtazapine Active Tablets 45mg take 1 Unknown /0000 Dispers tablets by mouth at bedtime Hydroxyzine HCL Active Tablets 25mg 2 at hs Unknown /0000 Benadryl Active 1 12.5 mg Unknown /0000 med cup at hs Aspirin 81 Low Active Chewtabs 81mg 1 by mouth Unknown Dose /0000 every day Augmentin 07/23 Hx Tablets 875-125mg 10tab take 1 by s mouth twice Janie, - a day for 5 M.D. Cipro 05/30 Hx Tablets 250mg 6tabs take one tab twice a Janie, - day for M.D. 07/30 three Ciprofloxacin HCL 05/28 Hx Tablets 500mg 14tab Take 1 tab s bid x 7 Janie, - days until M.D. 07/30 Vistaril Hx Capsules 50mg 2 by mouth Unknown /0000 once a day - 09/05 Remeron Hx Tablets 35mg 1 by mouth Unknown /0000 at bedtime - 03/26 Zoloft Hx Tablets 100mg 1 by mouth Unknown /0000 every day - 09/26 Lidocaine Hx Ointment 5% apply Unknown /0000 sparingly - to affected 08/01 area up to 3 times daily as needed Bactroban Hx Cream 2% apply to Unknown /0000 affected - area three 08/08 times a day /2016 Ambien Hx Tablets 10mg 1 by mouth Unknown /0000 every night - at bedtime 09/26 as needed /2017 sleep insomnia Hydrochlorothiazid Hx Capsules 12.5mg 1 by mouth Unknown e /0000 every day - 08/01 Reglan Hx Tablets 10mg take 1 Unknown /0000 tablet by - mouth as 12/04 needed bid /2017 MS Contin Hx Tablets 60mg 1 by mouth Unknown /0000 ER bid - 09/26 Hydrocodone-Acetam Hx Tablets 5-325mg 2 tabs by Unknown inophen /0000 mouth as - needed bid. 08/08 Ferrousul Hx Tablets 325(65Fe) once daily Unknown /0000 mg - 12/04 Lasix Hx Tablets 20mg 1 by mouth Unknown /0000 every day - 03/29 Mupirocin Calcium Hx Cream 2% apply two Unknown /0000 times daily - to areas of 04/30 blistering /2017 skin Diphenoxylate-Atro Hx Tablets 2.5-0.025 take 1-2 Unknown pine /0000 mg tablets by - mouth 3 03/26 times daily /2017 as needed for diarrhea Doxycycline Hx Capsules 100mg one tablet Unknown Hyclate /0000 twice daily - for 10 . /2018 Immunizations Description No Information Available Vital Signs Date Vital Result Comment 08/14/2018 8:55am Height 60 inches 5'0" Weight 208.00 lb Heart Rate 72 /min BP Systolic Recheck 126 mmHg BP Diastolic Recheck 82 mmHg Respiratory Rate 16 /min Body Temperature 98.1 F BMI (Body Mass Index) 40.6 kg/m2 07/24/2018 2:40pm Height 60 inches 5'0" Weight 203.00 lb Heart Rate 76 /min BP Systolic Recheck 134 mmHg BP Diastolic Recheck 84 mmHg Respiratory Rate 16 /min Body Temperature 981.0 F BMI (Body Mass Index) 39.6 kg/m2 06/05/2018 11:12am Height 60 inches 5'0" Weight 198.00 lb Heart Rate 70 /min BP Systolic Sitting 158 mmHg took am meds late this morning BP Diastolic Sitting 86 mmHg took am meds late this morning Respiratory Rate 16 /min Body Temperature 98.2 F O2 % BldC Oximetry 97 % 2 L at night with Cpap BMI (Body Mass Index) 38.7 kg/m2 05/08/2018 11:11am Height 60 inches 5'0" Weight 190.00 lb Heart Rate 76 /min BP Systolic Recheck 132 mmHg BP Diastolic Recheck 84 mmHg Respiratory Rate 16 /min Body Temperature 97.9 F BMI (Body Mass Index) 37.1 kg/m2 03/29/2018 10:07am Height 60 inches 5'0" Weight 188.00 lb with clothes and shoes Heart Rate 71 /min BP Systolic Sitting 124 mmHg right arm, large cuff, sitting BP Diastolic Sitting 72 mmHg right arm, large cuff, sitting BP Systolic Standing 122 mmHg right arm, large cuff, standing BP Diastolic Standing 72 mmHg right arm, large cuff, standing BP Systolic Lying Down 130 mmHg left arm, large cuff, sitting BP Diastolic Lying Down 78 mmHg left arm, large cuff, sitting Respiratory Rate 16 /min Body Temperature 98.4 F O2 % BldC Oximetry 93 % BMI (Body Mass Index) 36.7 kg/m2 Ejection Fraction 55-60% 10/06/16 03/06/2018 10:29am Height 60 inches 5'0" Weight 184.00 lb Heart Rate 76 /min BP Systolic Recheck 126 mmHg BP Diastolic Recheck 84 mmHg Respiratory Rate 16 /min Body Temperature 97.7 F BMI (Body Mass Index) 35.9 kg/m2 01/01/2018 1:52pm Height 60 inches 5'0" Weight 185.00 lb Heart Rate 76 /min BP Systolic Recheck 132 mmHg BP Diastolic Recheck 84 mmHg Respiratory Rate 16 /min Body Temperature 97.7 F BMI (Body Mass Index) 36.1 kg/m2 12/11/2017 2:17pm Height 60 inches 5'0" Weight 189.00 lb Heart Rate 76 /min BP Systolic Recheck 126 mmHg BP Diastolic Recheck 80 mmHg Respiratory Rate 16 /min Body Temperature 98.2 F BMI (Body Mass Index) 36.9 kg/m2 11/13/2017 2:59pm Height 60 inches 5'0" Weight 185.12 lb with shoes Heart Rate 78 /min BP Systolic Sitting 138 mmHg left arm, sitting, regular cuff BP Diastolic Sitting 82 mmHg left arm, sitting, regular cuff Respiratory Rate 16 /min Body Temperature 98.5 F O2 % BldC Oximetry 94 % BMI (Body Mass Index) 36.2 kg/m2 11/02/2017 3:38pm Height 60 inches 5'0" Weight 183.00 lb Heart Rate 88 /min BP Systolic Recheck 132 mmHg BP Diastolic Recheck 84 mmHg Respiratory Rate 16 /min Body Temperature 98.2 F BMI (Body Mass Index) 35.7 kg/m2 10/09/2017 2:52pm Height 60 inches 5'0" Weight 199.00 lb Heart Rate 76 /min BP Systolic Recheck 136 mmHg BP Diastolic Recheck 84 mmHg Respiratory Rate 16 /min Body Temperature 98.3 F BMI (Body Mass Index) 38.9 kg/m2 10/02/2017 3:06pm Height 60 inches 5'0" Weight 199.00 lb Heart Rate 88 /min BP Systolic Recheck 130 mmHg BP Diastolic Recheck 76 mmHg Respiratory Rate 16 /min Body Temperature 97.5 F BMI (Body Mass Index) 38.9 kg/m2 04/07/2017 10:55am Height 60 inches 5'0" Weight 201.00 lb Heart Rate 88 /min BP Systolic Recheck 134 mmHg BP Diastolic Recheck 86 mmHg Respiratory Rate 20 /min Body Temperature 98.4 F BMI (Body Mass Index) 39.3 kg/m2 09/06/2016 9:49am Height 60 inches 5'0" Weight 210.00 lb Heart Rate 80 /min BP Systolic Recheck 130 mmHg BP Diastolic Recheck 84 mmHg Respiratory Rate 16 /min Body Temperature 97.8 F BMI (Body Mass Index) 41.0 kg/m2 08/30/2016 1:40pm Height 60 inches 5'0" Weight 210.00 lb Heart Rate 76 /min BP Systolic Recheck 132 mmHg BP Diastolic Recheck 84 mmHg Respiratory Rate 16 /min Body Temperature 98.6 F BMI (Body Mass Index) 41.0 kg/m2 Results Test Date Facility Test Result H/L Range Note Inr/Protime 07/20/2018 [facility] Inr 0.92 N 0.77-1.[address] [place] [address] [phone] Laboratory test 07/20/2018 [facility] Partial 31.2 seconds N 26.0-36.3 [address] [place] [address] PTT [phone] CBC Auto Diff 07/20/2018 [facility] White Blood 4.2 10^3/uL N 3.5-10.[address] [place] [address] [phone] Red Blood Count 3.94 10^6/uL Low 4.00-5.40 Hemoglobin 11.0 g/dL Low 12.0-16.0 Hematocrit 34 % Low 35-47 Mean Corpuscular Volume 86 fL N 80-97 Mean Corpuscular Hemoglobin 28 pg N 27-31 Mean Corpuscular HGB Conc 33 g/dL N 31-36 Red Cell Distribution Width 16 % High 10.5-15 Platelet Count 143 10^3/uL Low 150-450 Mean Platelet Volume 9.0 fL N 7.4-10.4 Abs Neutrophils 2.4 10^3/uL N 1.5-7.7 Abs Lymphocytes 1.0 10^3/uL N 1.0-4.8 Abs Monocytes 0.6 10^3/uL N 0-0.8 Abs Eosinophils 0.1 10^3/uL N 0-0.6 Abs Basophils 0 10^3/uL N 0-0.2 Abs Nucleated RBC 0 10^3/uL Granulocyte % 57.9 % Lymphocyte % 23.1 % Monocyte % 14.4 % Eosinophil % 3.5 % Basophil % 1.1 % Nucleated Red Blood Cells % 0 Basic Metabolic Panel 07/20/2018 [facility] Sodium 142 mmol/L N 135-[address] [place] [address] [phone] Potassium 5.0 mmol/L N 3.5-5.0 Chloride 108 mmol/L N 101-111 Co2 Carbon Dioxide 29 mmol/L N 22-32 Anion Gap 5 mmol/L N 2-11 Glucose 92 mg/dL N 70-100 Blood Urea Nitrogen 15 mg/dL N 6-24 Creatinine 0.83 mg/dL N 0.51-0.95 BUN/Creatinine Ratio 18.1 N 8-20 Calcium 9.5 mg/dL N 8.6-10.3 Egfr Non- 68.4 >60 Egfr 82.7 >60 3 Laboratory test 07/20/2018 [facility] TSH (Thyroid 1.15 mcIU/mL N 0.34-5.60 [address] Stim [place]) [place] [address] [phone] Free T4 (Free Thyroxine) 0.98 ng/dL N 0.61-1.12 5 Type & Screen 07/20/2018 [facility] Patient Blood Type B Positive [address] [place] [address] [phone] Antibody Screen NEGATIVE Urinalysis Profile 07/20/2018 [facility] Urine Color Yellow [address] [place] [address] [phone] Urine Appearance Cloudy Urine Specific [place] 1.010 N 1.010-1.030 Urine pH 5.0 N 5-9 Urine Urobilinogen Negative Negative Urine Ketones Negative Negative Urine Protein Negative Negative Urine Leukocytes 2+ Abnormal Negative Urine Blood Negative Negative Urine Nitrite Negative Negative Urine Bilirubin Negative Negative Urine Glucose Negative Negative Urine White Blood Cell 3+(>20/hpf) Abnormal Absent Urine Red Blood Cell Trace(0-2/hpf) Absent Urine Bacteria 1+ Abnormal Absent Urine Culture And 07/20/2018 [facility] Urine Culture SEE RESULT [address] [place] [address] [phone] Urine Culture And 05/24/2018 [facility] Urine Culture SEE RESULT [address] [place] [address] [phone] Urinalysis Profile 05/24/2018 [facility] Urine Color Yellow [address] [place] [address] [phone] Urine Appearance Cloudy Urine Specific [place] 1.008 Low 1.010-1.030 Urine pH 5.0 N 5-9 Urine Urobilinogen Negative Negative Urine Ketones Negative Negative Urine Protein Negative Negative Urine Leukocytes 3+ Abnormal Negative Urine Blood 1+ Abnormal Negative Urine Nitrite Negative Negative Urine Bilirubin Negative Negative Urine Glucose Negative Negative Urine White Blood Cell 3+(>20/hpf) Abnormal Absent Urine Red Blood Cell 1+(3-5/hpf) Abnormal Absent Urine Bacteria 1+ Abnormal Absent Urine Squamous Epithelial Cell Present Abnormal Absent Type & Screen 05/24/2018 [facility] Patient Blood Type B Positive [address] [place] [address] [phone] Antibody Screen NEGATIVE Comp Metabolic Panel 05/24/2018 [facility] Sodium 140 mmol/L N 135-[address] [place] [address] [phone] Potassium 4.1 mmol/L N 3.5-5.0 Chloride 107 mmol/L N 101-111 Co2 Carbon Dioxide 27 mmol/L N 22-32 Anion Gap 6 mmol/L N 2-11 Glucose 95 mg/dL N 70-100 Blood Urea Nitrogen 11 mg/dL N 6-24 Creatinine 0.76 mg/dL N 0.51-0.95 BUN/Creatinine Ratio 14.5 N 8-20 Calcium 9.4 mg/dL N 8.6-10.3 Total Protein 6.4 g/dL N 6.4-8.9 Albumin 4.3 g/dL N 3.2-5.2 Globulin 2.1 g/dL N 2-4 Albumin/Globulin Ratio 2.0 N 1-3 Total Bilirubin 0.40 mg/dL N 0.2-1.0 Alkaline Phosphatase 145 U/L High 34-104 Alt 13 U/L N 7-52 Ast 16 U/L N 13-39 Egfr Non- 75.7 >60 Egfr 91.6 >60 8 Laboratory test 05/24/2018 [facility] Partial 29.2 seconds N 26.0-36.[address] [place] [address] PTT [phone] Inr/Protime 05/24/2018 [facility] Inr 0.94 N 0.77-1.[address] [place] [address] [phone] CBC Auto Diff 05/24/2018 [facility] White Blood 4.7 10^3/uL N 3.5-10.[address] [place] [address] [phone] Red Blood Count 4.05 10^6/uL N 4.00-5.40 Hemoglobin 11.0 g/dL Low 12.0-16.0 Hematocrit 34 % Low 35-47 Mean Corpuscular Volume 84 fL N 80-97 Mean Corpuscular Hemoglobin 27 pg N 27-31 Mean Corpuscular HGB Conc 32 g/dL N 31-36 Red Cell Distribution Width 15 % N 10.5-15 Platelet Count 160 10^3/uL N 150-450 Mean Platelet Volume 9.1 fL N 7.4-10.4 Abs Neutrophils 3.0 10^3/uL N 1.5-7.7 Abs Lymphocytes 1.2 10^3/uL N 1.0-4.8 Abs Monocytes 0.4 10^3/uL N 0-0.8 Abs Eosinophils 0.1 10^3/uL N 0-0.6 Abs Basophils 0.1 10^3/uL N 0-0.2 Abs Nucleated RBC 0 10^3/uL Granulocyte % 63.0 % Lymphocyte % 26.0 % Monocyte % 7.7 % Eosinophil % 2.2 % Basophil % 1.1 % Nucleated Red Blood Cells % 0.1 1 AA 3/4 2 AA 3/4 3 Because ethnic data is not always readily available, this report includes an eGFR for both -Americans and non- Americans. The National Kidney Disease Education Program (NKDEP) does not endorse the use of the MDRD equation for patients that are not between the ages of 18 and 70, are , have extremes of body size, muscle mass, or nutritional status, or are non- or non-. According to the National Kidney Foundation, irrespective of diagnosis, the stage of the disease is based on the level of kidney function: Stage Description GFR(mL/min/1.73 m(2)) 1 Kidney damage with normal or decreased GFR 90 2 Kidney damage with mild decrease in GFR 60-89 3 Moderate decrease in GFR 30-59 4 Severe decrease in GFR 15-29 5 Kidney failure <15 (or dialysis) 4 AA 3/4 5 AA 3/4 6 SEE RESULT BELOW Name: JENNIFER MENDEZ : [address]: Marc Lima MD Acct: [id number] Unit: [id number] AGE: 68 Location: [facility] Re07/20/18 SEX: F Status: REG REF SPEC: [id number] MAXI: 07/20/18 [facility] DR: Marc Lima MD REQ: [id number] RECD: 07/20/18 STATUS: MARIA EUGENIA HARO DR: Marlen Resendiz MD _ SOURCE: URINE [facility]: ORDERED: Urine Culture Procedure Result Reported Site Urine Culture Final 07/22/18- 825 ML Organism 1 KLEBSIELLA PNEUMONIAE [place] Count 50-75,000 (Many) CFU/ML 1. KLEBSIELLA PNEUMONIAE [facility].I.C. RX --------- ------ Ampicillin >=32 R Cefazolin <=4 S Cefepime <=1 S Ceftriaxone <=1 S Ciprofloxacin >=4 R Gentamicin <=1 S Levofloxacin >=8 R Meropenem <=0.25 S Nitrofurantoin 256 R Tetracycline >=16 R Pipercillin/Tazobactam 64 I Trimethoprim/Sulfamethoxazole >=320 R Amoxicillin/Clavulanic Acid 8 S Aztreonam <=1 S Contact the Microbiology Department for any additional antibiotic reporting. * ML - Main Lab . END OF REPORT DEPARTMENT OF PATHOLOGY, [address] [place] [address] Benedicto Bowden M.D. Director [facility] # [id number] 7 SEE RESULT BELOW Name: JENNIFER MENDEZ : [address]: Marc Lima MD Acct: [id number] Unit: [id number] AGE: 68 Location: [facility] Re05/24/18 SEX: F Status: REG REF SPEC: [id number] MAXI: 05/24/18-0 [facility] [address]: Marc Lima MD REQ: [id number] RECD: 05/24/18 STATUS: MARIA EUGENIA BIRD DR: Sandy Quarles HNP Marlen Resendiz MD _ SOURCE: URINE [facility]ES[facility]: ORDERED: Urine Culture QUERIES: Urine Source: Clean Catch Procedure Result Reported Site Urine Culture Final 05/26/18- 0811 ML Organism 1 KLEBSIELLA PNEUMONIAE [place] Count >100,000 (Many) CFU/ML 1. KLEBSIELLA PNEUMONIAE [facility].I[facility] RX --------- ------ Ampicillin >=32 R Cefazolin <=4 S Cefepime <=1 S Ceftriaxone <=1 S Ciprofloxacin <=0.25 S Gentamicin <=1 S Levofloxacin <=0.12 S Meropenem <=0.25 S Nitrofurantoin 64 I Tetracycline <=1 S Pipercillin/Tazobactam 8 S Trimethoprim/Sulfamethoxazole <=20 S Amoxicillin/Clavulanic Acid <=2 S Aztreonam <=1 S Contact the Microbiology Department for any additional antibiotic reporting. * ML - Main Lab . END OF REPORT DEPARTMENT OF PATHOLOGY, [address] [place] [address] Benedicto Bowden M.D. Director [facility] # [id number] 8 Because ethnic data is not always readily available, this report includes an eGFR for both -Americans and non- Americans. The National Kidney Disease Education Program (NKDEP) does not endorse the use of the MDRD equation for patients that are not between the ages of 18 and 70, are , have extremes of body size, muscle mass, or nutritional status, or are non- or non-. According to the National Kidney Foundation, irrespective of diagnosis, the stage of the disease is based on the level of kidney function: Stage Description GFR(mL/min/1.73 m(2)) 1 Kidney damage with normal or decreased GFR 90 2 Kidney damage with mild decrease in GFR 60-89 3 Moderate decrease in GFR 30-59 4 Severe decrease in GFR 15-29 5 Kidney failure <15 (or dialysis) Procedures Date Code Description Status 03/29/2018 58005 EKG, Interpretation Only Completed 12/25/2017 Incision Abscess Soft Tissue Deep/Complicated Completed 04/07/2017 46882 Inject/Drain Joint/Bursa Major W/O US Completed 10/06/2016 28153 ECHO Transthorasic Realtime 2D W Doppler & Color Flow Hosp Completed 08/04/2015 37426 Hyperbaric Oxygen Therapy By Physician Completed 07/22/2015 84436 Hyperbaric Oxygen Therapy By Physician Completed 07/21/2015 34868 Hyperbaric Oxygen Therapy By Physician Completed 07/16/2015 09088 Hyperbaric Oxygen Therapy By Physician Completed 07/15/2015 26866 Hyperbaric Oxygen Therapy By Physician Completed 07/08/2015 35738 Hyperbaric Oxygen Therapy By Physician Completed 07/07/2015 07306 Hyperbaric Oxygen Therapy By Physician Completed 07/02/2015 29919 Hyperbaric Oxygen Therapy By Physician Completed 07/01/2015 08780 Hyperbaric Oxygen Therapy By Physician Completed 06/25/2015 68324 Hyperbaric Oxygen Therapy By Physician Completed 06/24/2015 85072 Hyperbaric Oxygen Therapy By Physician Completed 06/23/2015 43897 Hyperbaric Oxygen Therapy By Physician Completed 06/18/2015 76471 Hyperbaric Oxygen Therapy By Physician Completed 06/18/2015 22495 Removal Devitalization Tissue Wound Less Than Equal 20 Completed Square CM 06/17/2015 16219 Hyperbaric Oxygen Therapy By Physician Completed 06/11/2015 95054 Hyperbaric Oxygen Therapy By Physician Completed 06/11/2015 89072 Application Skin Substitute Graft Trunk,Arms Lets Up To Completed 100 SQ CM 06/10/2015 04341 Hyperbaric Oxygen Therapy By Physician Completed 06/09/2015 79604 Hyperbaric Oxygen Therapy By Physician Completed 06/03/2015 80784 Removal Devitalization Tissue Wound Less Than Equal 20 Completed Square CM 05/20/2015 96980 Removal Devitalization Tissue Wound Less Than Equal 20 Completed Square CM 05/13/2015 76275 Removal Devitalization Tissue Wound Less Than Equal 20 Completed Square CM 05/06/2015 22960 Removal Devitalization Tissue Wound Less Than Equal 20 Completed Square CM 04/22/2015 99612 Removal Devitalization Tissue Wound Less Than Equal 20 Completed Square CM 04/15/2015 45058 Debridement Skin,& sq Tissue Completed 04/08/2015 42871 Removal Devitalization Tissue Wound Less Than Equal 20 Completed Square CM 04/01/2015 71926 Debridement Skin,& sq Tissue Completed 03/25/2015 22722 Debridement Skin,& sq Tissue Completed 03/18/2015 61329 Debridement Skin,& sq Tissue Completed 03/04/2015 78493 Debridement Skin,& sq Tissue Completed 02/25/2015 98167 Debridement Skin,& sq Tissue Completed 02/18/2015 07130 Debridement Skin,& sq Tissue Completed 02/04/2015 41384 Debridement Skin,& sq Tissue Completed 01/28/2015 98329 Debridement Skin,& sq Tissue Completed 01/19/2015 94085 Debridement Skin,& sq Tissue Completed 01/12/2015 09399 Debridement Skin,& sq Tissue Completed 01/05/2015 04090 Debridement Skin,& sq Tissue Completed 12/29/2014 29853 Icd 10 Education Completed 12/29/2014 20126 Removal Devitalization Tissue Wound Less Than Equal 20 Completed Square CM 12/22/2014 92003 Debridement Skin,& sq Tissue Completed 12/15/2014 38054 Debridement Skin,& sq Tissue Completed 12/01/2014 74578 Debridement Skin,& sq Tissue Completed 11/24/2014 83197 Debridement Skin,& sq Tissue Completed 11/17/2014 79609 Removal Devitalization Tissue Wound Less Than Equal 20 Completed Square CM 11/10/2014 24684 Removal Devitalization Tissue Wound Less Than Equal 20 Completed Square CM 11/03/2014 68967 Debridement Skin,& sq Tissue Completed 10/13/2014 90127 Debridement Skin,& sq Tissue Completed 02/28/2013 39002 ECHO Transthorasic Realtime 2D W Doppler & Color Flow Hosp Completed Encounters Type Date Location Provider Dx Diagnosis Office Visit 06/05/2018 Pulmonology [facility] Sleep Rosina Blanchard, G47.33 Obstructive sleep 11:30a Services AT MD chowdhury (adult) Manfred (pediatric) J45.909 Unspecified asthma, uncomplicated Z01.811 Encounter for preprocedural respiratory examination Office Visit 05/08/2018 11:00a Pauline Tran S60.211A Contusion of [facility] Lima M.D. right wrist, AT [place] initial encounter S52.611K Disp fx of r ulna styloid pro, subs for clos fx w nonunion Office Visit 03/29/2018 10:00a Manfred Almonte I10 Essential (primary) Cardiology Marlon Mejias hypertension I35.0 Nonrheumatic aortic (valve) stenosis Z01.810 Encounter for preprocedural cardiovascular examination M17.0 Bilateral primary osteoarthritis of knee Office Visit 03/06/2018 Pauline Tran M17.0 Bilateral primary 10:30a [facility] M.D. osteoarthritis of AT [place] knee Office Visit 12/11/2017 Surgical Isaac Layton.211 Cutaneous abscess 1:45p [facility] M.D. of abdominal wall AT [place] Office Visit 11/13/2017 Samuel Belcher211 Cutaneous abscess 3:00p [facility] M.D. of abdominal wall AT [place] Office Visit 11/02/2017 Surgical Santiago [email or web address] Cutaneous abscess 3:15p [facility] Zavala MD of abdominal wall AT [place] Office Visit 10/09/2017 Surgical Isaac [email or web address] Cutaneous abscess 2:45p [facility] M.D. of abdominal wall AT [place] Office Visit 10/02/2017 Surgical Isaac [email or web address] Cutaneous abscess 3:15p [facility] M.D. of abdominal wall AT [place] Office Visit 10/09/2016 [place] Medhat Daly K56.69 Other intestinal 1:38p Assoc,lowell Phelan M.D. obstruction Hospitalists E03.9 Hypothyroidism, unspecified R07.9 Chest pain, unspecified Office Visit 10/08/2016 1:37p [place] Daly K56.69 Other intestinal Assoc,lowell Phelan M.D. obstruction Hospitalists E03.9 Hypothyroidism, unspecified R07.9 Chest pain, unspecified I10 Essential (primary) hypertension Office Visit 10/08/2016 7:00a Surgical Shiv Rosales K56.60 Unspecified [facility] Duarte MD, intestinal FACS obstruction Z98.84 Bariatric surgery status Office Visit 10/07/2016 1:36p [place] Med[place] Daly K56.69 Other intestinal Assoc,lowell Phelan M.D. obstruction Hospitalists R07.9 Chest pain, unspecified E03.9 Hypothyroidism, unspecified Office Visit 10/06/2016 7:00a Surgical Shiv P. R10.10 [facility] MD, pain, unspecified FACS Z98.84 Bariatric surgery status Office Visit 10/06/2016 1:36p [place] Daly K56.69 Other intestinal Assoc,lowell Phelan M.D. obstruction Hospitalists E03.9 Hypothyroidism, unspecified R07.9 Chest pain, unspecified I10 Essential (primary) hypertension Office Visit 10/05/2016 [place] Mchugh K56.69 Other intestinal 1:35p Assoc,lowell Nascimento N.PDennis obstruction Hospitalists R07.9 Chest pain, unspecified E03.9 Hypothyroidism, unspecified I10 Essential (primary) hypertension Office Visit 10/05/2016 7:00a Surgical Shiv P. R10.10 [facility] MD, pain, unspecified FACS R11.2 Nausea with vomiting, unspecified Z98.84 Bariatric surgery status Office Visit 09/06/2016 9:45a Orthopedic Marc M25.561 Pain in right [facility] M.D. knee AT [place] Office Visit 08/30/2016 1:30p Orthopedic Marc M25.561 Pain in right [facility] M.[facility] knee AT [place] Office Visit 07/16/2015 2:35p [facility] [place] T81.31xA Disruption of Center AT [facility] Marlon Moore external operation (surgical) wound, NEC, init Y83.8 Oth surgical procedures cause abn react/compl, w/o misadvnt Office Visit 07/02/2015 11:07a [facility] [place] T81.31xA Disruption of Center AT [facility] Moore M.D. external operation (surgical) wound, NEC, init Y83.8 Oth surgical procedures cause abn react/compl, w/o misadvnt Office Visit 06/25/2015 9:16a Wound [facility] [place] T81.31xA Disruption of Center AT [facility] Marlon Moore external operation (surgical) wound, NEC, init Y83.8 Oth surgical procedures cause abn react/compl, w/o misadvnt Office Visit 10/27/2014 [facility] [place] 998.32 Disruption Of 4:15p Nasreen Moore M.D. External [place] Operation (Surgical) Wound 707.07 Pressure Ulcer Heel Office Visit 10/06/2014 [facility] [place] 998.32 Disruption Of 11:30a [place] Moore M.D. External Oscar Operation (Surgical) Wound Plan of Treatment Future Appointment(s):09/21/2018 10:30 am - Marc Lima M.D. at [facility] AT [facility]adp64/01/2019 7:30 am - Marc Lima M.D. at [facility]08/14/2018 - Marc Lima M.D.M17.11 Unilateral primary osteoarthritis, right kneeFollow up:4 weeks after surgery
[2018-09-10] MEDS ORDERED: Lidocaine 2% PF * 5 ML VIAL ONE ×2 (09:30→10:53)
[2018-09-10] MEDS ORDERED: fentaNYL* 50 MCG/ML 2 ML VIAL (100 MCG VIAL) ONE (09:30)
[2018-09-10] MEDS ORDERED: ROPIVACAINE 5 MG/ML 30 ML BTL (0.5%) ONE (09:30)
[2018-09-10] MEDS ORDERED: Ondansetron INJ* 2 MG/ML VIAL ONE (09:30)
[2018-09-10] MEDS ORDERED: Midazolam* 1 MG/ML 5 ML VIAL (5 MG) ONE ×2 (09:30→10:53)
[2018-09-10] MEDS ORDERED: Propofol* 10 MG/ML 20 ML BTL ONE (09:30)
[2018-09-10] MEDS ORDERED: Dexamethasone IV* 4 MG/ML 1 ML (4 MG) ONE (09:30)
[2018-09-10] MEDS ORDERED: Sodium Chloride 0.9%* 10 ML ONE (09:30)
[2018-09-10] MEDS ORDERED: Cisatracurium* 2 MG/ML MDV 5 ML ONE (09:30)
[2018-09-10] MEDS ORDERED: Acetaminophen TAB* 325 MG PO ONE (10:06)
[2018-09-10] MEDS ORDERED: Gabapentin CAP(*) 300 MG PO ONE (10:06)
[2018-09-10] MEDS ORDERED: Gabapentin CAP(*) 300 MG ONE (10:11)
[2018-09-10] MEDS ORDERED: Acetaminophen TAB* 325 MG ONE (10:12)
[2018-09-10] MEDS ORDERED: Bupivacaine 0.5% SDV PF* 30ML VIAL ONE (10:53)
[2018-09-10] MEDS ORDERED: Phenylephrine 10 MG/ML VIAL* 1 ML VIAL ONE (11:36)
[2018-09-10] MEDS ORDERED: KETAMINE HCL* 50 MG/ML 10 ML VIAL ONE (11:46)
[2018-09-10] MEDS ORDERED: Propofol* 500 MG/50 ML BTL ONE (11:46)
[2018-09-10] MEDS ORDERED: Ketorolac INJ* 30 MG/ML 1 ML VIAL ONE (12:04)
[2018-09-10] MEDS ORDERED: EPINEPHRINE 1 MG/ML 1 ML VIAL ONE (12:08)
[2018-09-10] MEDS ORDERED: Bupivacaine 0.25% W/EPI* 10 ML SDV ONE (12:08)
[2018-09-10] MEDS ORDERED: Bupivacaine 0.25% EPI 200,000* 30 ML SDV ONE (12:20)
[2018-09-10] MEDS ORDERED: Ondansetron INJ* 2 MG/ML VIAL IV PRN ×2 (12:45→13:46)
[2018-09-10] MEDS ORDERED: fentaNYL* 50 MCG/ML 2 ML VIAL (100 MCG VIAL) IV PRN (12:45)
[2018-09-10] MEDS ORDERED: Levalbuterol 0.63MG/3ML NEB* UNIT OF USE INH PRN (12:45)
[2018-09-10] MEDS ORDERED: Phenylephrine 10 MG/ML VIAL* 50 MG in NS 0.9% 250 ML* 245 ML IV PRN (12:45)
[2018-09-10] MEDS ORDERED: Naloxone* 0.4 MG/ML 1 ML VIAL IV PRN (12:45)
[2018-09-10] MEDS ORDERED: Ondansetron ODT TAB* 4 MG PO PRN (13:46)
[2018-09-10] MEDS ORDERED: traMADol TAB* 50 MG PO PRN (13:46)
[2018-09-10] MEDS ORDERED: Magnesium Hydroxide LIQ* 30 ML UDC PO PRN (13:46)
[2018-09-10] MEDS ORDERED: diPHENhydraMINE PO* 25 MG PO PRN (13:46)
[2018-09-10] MEDS ORDERED: diPHENhydraMINE IV* 50 MG/ML 1 ml VIAL (BENADRYL) IV PRN (13:46)
[2018-09-10] MEDS ORDERED: oxyCODONE/Acetamin 10/325(NF) TAB PO PRN (13:56)
[2018-09-10] MEDS ORDERED: Gabapentin CAP(*) 100 MG PO PRN (13:56)
[2018-09-10] MEDS ORDERED: Albuterol HFA INHALER* 8 gm MDI INH PRN (13:56)
[2018-09-10] MEDS ORDERED: oxyCODONE TAB* 5 MG TAB PO PRN (14:00)
[2018-09-10] MEDS ORDERED: DOXYcycline CAP(*) 100 MG PO SCH (14:00)
[2018-09-10] MEDS ORDERED: Vancomycin per Pharmacy* NOTE FOLLOW UP SCH (14:00)
[2018-09-10] MEDS ORDERED: oxyCODONE/Acetamin 5/325 MG* TAB PO PRN (15:53)
[2018-09-10] MEDS: D5W 1/2 NS 1000 ML BAG* 1,000 ML IV SCH (16:00)
[2018-09-10] MEDS: oxyCODONE/Acetamin 5/325 MG* TAB PO PRN (16:11)
--- NOTE | 2018-09-10 16:59 | PN ---
Progress Note - Progress Note Date of Service: 09/10/18 Note: Pt seen POD 0. She feels well, pain is well controlled. Denies CP, SOB, dizziness, nausea. Dressing CDI, DF/PF intact, DP2+, sensation intact to light touch distally.
[2018-09-10] MEDS: Acetaminophen TAB* 325 MG PO SCH ×2 (17:00→22:57)
[2018-09-10] MEDS ORDERED: Warfarin TAB(*) 10 MG PO ONE (17:00)
[2018-09-10] MEDS: Morphine TAB Extended Release (*) 15 MG TAB.ER PO PRN (18:45)
[2018-09-10] MEDS ORDERED: Lisinopril TAB* 10 MG PO SCH (21:00)
[2018-09-10] MEDS ORDERED: Zolpidem TAB* 10 MG PO PRN (21:00)
[2018-09-10] MEDS ORDERED: OXYGEN 2 UNIT SCH (21:00)
[2018-09-10] MEDS ORDERED: Docusate CAP* 100 MG PO SCH (21:00)
[2018-09-10] MEDS: Docusate CAP* 100 MG PO SCH (21:25)
[2018-09-10] MEDS: diPHENhydraMINE LIQ* 12.5 MG/5 ML UDC PO SCH (21:25)
[2018-09-10] MEDS: Diazepam TAB(*) 10 MG PO SCH (21:25)
[2018-09-10] MEDS: Carvedilol TAB* 6.25 MG PO SCH (21:25)
[2018-09-10] MEDS: hydrOXYzine HCL TAB* 50 MG PO SCH (21:26)
[2018-09-10] MEDS: Famotidine TAB* 20 MG PO SCH (21:26)
[2018-09-10] MEDS: Magnesium Hydroxide LIQ* 30 ML UDC PO SCH (21:27)
[2018-09-10] MEDS: Mirtazapine TAB* 15 MG PO SCH (21:27)
[2018-09-10] MEDS: Vancomycin(*) 1,250 MG in NS 0.9% 250 ML* 250 ML IVPB SCH (21:28)
--- NOTE | 2018-09-10 21:48 | CONS ---
CC: Dr. Marlen Resendiz * CONSULTATION REPORT: DATE OF CONSULT: 09/10/18 PRIMARY CARE PROVIDER: Marlen Resendiz MD REQUESTING PHYSICIAN IN CONSULT: Dr. Ginag. ATTENDING PHYSICIAN: Dr. Damari Gan (dictated by Jenni Lozano NP). REASON FOR CONSULT: Co-medical management. HISTORY OF PRESENT ILLNESS/HOSPITAL COURSE: I will refer you to Dr. Lima's history and physical dictated on 05/08/18 for complete details, but in short, Mrs. Means is a 68-year-old female with a past medical history of obesity, hypertension, hyperlipidemia, sleep apnea as well as osteoarthritis; who presented to [facility] on 09/10/18 for an elective right total knee replacement after failing conservative treatment. PAST MEDICAL HISTORY: 1. Obesity. 2. Back pain. 3. Depression. 4. Hypertension. 5. Hyperlipidemia. 6. Sleep apnea. 7. Migraines. 8. Cellulitis. 9. Anemia. 10. Fatigue. 11. Bronchitis. 12. MRSA. 13. Hypothyroidism. 14. Vitamin D deficiency. 15. TIA in 2013. 16. Heart murmur. 17. Recurrent UTIs. PAST SURGICAL HISTORY: 1. Cholecystectomy. 2. Appendectomy. 3. Hernia repair. 4. Stomach rebuild. 5. Breast surgery. 6. Carpal tunnel release. 7. Hysterectomy. HOME MEDICATIONS: 1. Percocet 10/325 1 to 2 tabs p.o. q.4 hours p.r.n. MDD 6. 2. Atarax 50 mg p.o. at bedtime. 3. Diphenhydramine 10 mL p.o. at bedtime. 4. Norvasc 5 mg p.o. q.a.m. 5. Ambien 10 mg p.o. at bedtime. 6. Zantac 150 mg p.o. at bedtime. 7. Oxygen 2 L at bedtime with CPAP. 8. Morphine extended release 15 mg p.o. q.12 hours p.r.n. MDD 2 tabs. 9. Remeron 45 mg p.o. at bedtime. 10. Lisinopril 20 mg p.o. b.i.d. 11. Levothyroxine 75 mcg p.o. daily. 12. Gabapentin 100 mg p.o. at bedtime p.r.n. 13. Colace 100 mg p.o. b.i.d. 14. Valium 10 mg p.o. t.i.d. 15. Doxycycline 100 mg p.o. b.i.d. completed course yesterday 09/09/18. 16. Coreg 6.25 mg p.o. b.i.d. 17. Aspirin 81 mg p.o. q.a.m. 18. Albuterol 1 to 2 puffs inhalation 4 times daily p.r.n. 19. Abilify 2 mg tabs p.o. q.a.m. ALLERGIES: 1. BENZONATATE. 2. DEXTROMETHORPHAN. 3. ERYTHROMYCIN BASE. 4. GUAIFENESIN. 5. HALDOL 6. SULFAMETHOXAZOLE from BACTRIM. 7. TRIMETHOPRIM from BACTRIM. 8. . 9. LYRICA. FAMILY HISTORY: The patient reports her family history is positive for congestive heart failure, myocardial infarction, heart disease, and breast cancer. SOCIAL HISTORY: The patient lives with her . She is retired. The patient is a former smoker. She reports she smoked appropriately 1 week. The patient denies alcohol use. The patient denies drug use. REVIEW OF SYSTEMS: The patient reports right knee pain that is "8"/10, just received pain medications from nurse. A 14-point review of system was completed and all others were negative. PHYSICAL EXAM: General: Mrs. Means is a well-developed, well-nourished woman today in bed on short-stay surgical unit, in no acute distress. She appears stated age. Vital Signs: Temp 97.6, HR 69, RR 14, O2 saturation 99% on 2 L, BP 111/60. HEENT: PERRLA. EOMs intact. Oral mucosa is moist without lesion. Posterior pharynx is clear. Neck: Full range of motion. Supple. No lymphadenopathy. Respiratory: Symmetrical chest expansion. Lungs are clear to auscultation. No rhonchi, wheezes or rubs. Cardiac: S1, S2 present. Regular rate and rhythm. Systolic murmur appreciated. No rubs or gallops. No JVD. Extremities: Skin is warm and smooth bilaterally. No edema. No clubbing or cyanosis. Pedal pulses 2+ bilaterally. Musculoskeletal: The patient reports right hip pain. No other pain or deformities. Abdomen: Soft, nontender. Bowel sounds x4. Neuro: Awake, alert and oriented x4. Motor strength is 5/5 in the upper and lower extremities. No focal deficits Skin: Dressing to the right hip is clean, dry, and intact. Remainder of the skin is grossly intact without lesions. DIAGNOSTIC STUDIES/LAB DATA: CBC completed on 09/06/18 revealed WBC 4.9, hemoglobin 11.2, hematocrit 34, platelets 174. BMP obtained on 09/06/18 revealed sodium 142, potassium 4.3, chloride 108, carbon dioxide 26, BUN 17, creatinine is 0.89, glucose 101. TSH obtained on 07/20/18 revealed TSH of 1.15. ASSESSMENT AND PLAN: Ms. Means is a 68-year-old female with a past medical history significant for hypertension, hyperlipidemia, sleep apnea, methicillin- resistant Staphylococcus aureus, hypothyroid, vitamin D deficiency, transient ischemic attack, heart murmur, recurrent urinary tract infection; who presented to [facility] today for an elective right total knee replacement. The patient will be admitted to short-stay surgical for the following. 1. Status post right total knee replacement. Management per Ortho. Pain medications and bowel regimen has been ordered by ortho team. 2. Back pain. The patient reports chronic back, abdominal, migraine pain, therefore, she is on a regimen of narcotic medications at home that works well for her. These have been continued by the ortho team. I would monitor the patient for sedation given her multiple narcotics in addition to sleeping agents. The patient reports she takes all of these at home and has never had problems, but she still warrants close monitoring. I would continue her pulse ox possibly greater than 24 hours if needed. 3. Depression. The patient should continue her medications as same and follow up with her outpatient primary care provider. 4. Hypertension. The patient is on Norvasc, Coreg and lisinopril. The patient has been normotensive while here on short stay and in the PACU. I will continue the patient's Norvasc and Coreg. I will hold her lisinopril and this should be readdressed tomorrow. 5. Hyperlipidemia. The patient reports she has a history of high cholesterol, but this is no longer the case. I will defer this to her primary care for further management. 6. Sleep apnea. The ortho team has ordered to continue her pulse ox monitor and I agree with this plan. They have also ordered the patient to use her own CPAP and I agree with this. The patient should be using 2 L oxygen with her CPAP. I would consider continuing the pulse ox monitoring past 24 hours given the patient's multiple narcotic medications and sleep aids. 7. Migraines. As mentioned above, the patient is on a regimen of pain medications from home, which works well for her and she has been migraine free for several years. These medications have been ordered by ortho team are same. Please monitor for oversedation. 8. History of cellulitis. The patient has no evidence of cellulitis currently. We should continue to monitor. 9. Anemia. The patient has a history of anemia. Labs do not reveal concern for anemia. Labs that were obtained on 09/06/18 do not reveal any concern for her anemia. 10. Fatigue. Supportive care. 11. History of bronchitis. The patient reports she has history of recurrent bronchitis. We should monitor the patient accordingly. 12. History of methicillin-resistant Staphylococcus aureus. The patient has been placed on contact precautions. The patient reports primary care provider ordered her a course of doxycycline prior to coming to [facility] for surgery. The patient reports she completed this course of doxycycline yesterday on 09/09/18. The patient reports this is a preventative measure as she did not have any active infection that she is aware of. We will monitor. 13. Hypothyroid. We should continue the patient's levothyroxine as same. 14. Vitamin D deficiency. The patient should continue her vitamin D as same. 15. Transient ischemic attack. The patient reports she had a TIA 5 years ago. The patient should be monitored and supportive care provided. The patient should follow up with her primary care provider regarding lifestyle changes to reduce risk factors. 16. Heart murmur. The patient has a systolic heart murmur appreciated and was seen by Dr. Mejias prior to surgery. He mentioned that she had mild aortic stenosis, which is the cause of the murmur and should be reevaluated in 2 years. 17. Recurrent urinary tract infections. The patient has a history of recurrent urinary tract infections, therefore, we should monitor the patient for signs and symptoms of urinary tract infection. I also discussed this with the surgical PA, Shu Cuba who reports that the patient will her Almanza removed on postop day 2 instead of the usual postop day 1. I will defer this to ortho. 18. FEN: The patient has had diet ordered by the ortho team. 19. Code status: The patient is a full code. 20. DVT prophylaxis: The patient has SCDs. The ortho team has also ordered Coumadin and heparin. 21. Surrogate decision maker: The patient's surrogate decision maker is her Caleb Means, . TIME SPENT: Approximately 60 minutes was spent on this consultation, greater than half the time was spent with the patient obtaining my history, performing my physical exam, and reviewing my plan of care. This case has been reviewed with my attending, Dr. Gan who is in agreement with my plan. Thank you very much for allowing us to participate in the care of this patient. We will follow along with you. Reviewed by JENNI LOZANO NP 09/12/18 @ 1004 [id number]/CPS #: [id number] JEN
--- NOTE | 2018-09-10 23:19 | OP ---
DATE OF OPERATION: 09/10/18 - ROOM #348 DATE OF : 50 ATTENDING PHYSICIAN: Marc Lima MD WOOD FLOORING SPECIALIST: Shu Cuba RPA ANESTHESIA: Regional/spinal/sedation. PRE-OP DIAGNOSIS: Osteoarthritis, right knee. POST-OP DIAGNOSIS: Osteoarthritis, right knee. OPERATIVE PROCEDURE: Right total knee arthroplasty. ESTIMATED BLOOD LOSS: Less than 50 cc. COMPLICATIONS: None. HARDWARE: Celso Persona, non-cemented #4 tibia, cemented D femur, cemented patella, 35 mm patella, 10 mm polyethylene spacer. SUMMARY: Mrs. Means is a 68-year-old female who has had trouble with bilateral knee pain for some time. She had been indicated for a total knee arthroplasty because of failed conservative treatment for her knee pain. I discussed with her that a total knee arthroplasty should work well to decrease her pain and improve her function. Risks of surgery such as infection, scar formation, stiffness, DVT, pulmonary embolism, hardware failure and continued pain were some of the risks discussed. She had been declared medically optimized and wished to proceed. DESCRIPTION OF PROCEDURE: The patient had a block placed in the holding area. She was brought back to the OR and spinal anesthesia was introduced. Tourniquet was placed over the proximal right thigh and was used during the case. Total tourniquet time would be 67 minutes. The right knee was prepped and then draped. Incision was made, centered over the patella and was carried medially where she already had an incision, where she had a traumatic injury years ago. Incision was carried down through the skin and subcutaneous tissues. Small bleeders encountered were ligated using electrocautery. Extensor mechanism was exposed and a sharp parapatellar arthrotomy was made. Fat pad was sharply excised and it could be seen where she had very specific patella infera. Care was taken not to damage the patellar tendon insertion. Patella measured 22 mm in thickness and it could be seen where she was severely worn on the underside of the patella. Patella cut was made resecting approximately 9 mm of patella and a nice even surface was obtained. Patella was then approximately 13 mm in thickness. Patella was easily subluxated laterally and the knee was flexed out. Nice exposure of the femur was obtained. Step drill was used to open the femoral canal and the intramedullary guide was placed. The guide was then pinned into place after alining it with the epicondylar axis and distal femoral cutting guide was then pinned into place. Intramedullary guide was removed. Distal femoral cut was taken with the settings at 3 degrees and 42 mm. It appeared a nice cut was obtained. Femur was sized and she sat between the 4 and the 5, so the 4 was selected. Holes were drilled and a cutting block was placed. It could be seen now that the superior hole did not and I would have notched the femur, so this was moved up 3 times and finally the drill came up right on the top side of the femoral cortex. Anterior and posterior femur cuts followed by the chamfer cuts were taken. Attention was turned to the tibia. Step drill was used to open the tibial canal and the intramedullary guide was placed. Outrigger was assembled and adjusted until it appeared it would take 2 mm from the worn medial side. Proximal tibial cut was taken, and it appeared a nice cut was obtained. Spacer block was placed and with the drop kassandra, it could be seen that I was perfectly aligned right along the anterior spine of the tibia. She came out nicely into full extension and was a little bit loose with knee flexion as the commercial lines assistant takes an extra 2 mm posteriorly. Therefore, I thought the alignment was excellent. Proximal tibia was sized and the D sat very nicely. Considering she had good bone quality on the tibia, I thought we would go noncemented and 2 stud holes were drilled. Attention was turned to the tibia, 4 was placed and the notch cut was finished using the notch cut finishing guide. Stud holes were drilled and parts were called for. Unfortunately, we did not have a 4 noncemented right femur in stock, therefore, arrangements were made for a cemented femur and cement was then opened. Patella was going to be noncemented but with the peg hole and then trying to place the implant, it crushed in very easily without the resistance that I usually had and decision was made to cement patella as well. Holes were made using the guide and cement was being mixed. The tibia was impacted into place and I had to work to get the tibia to fully seat. Femur and tibia were both cemented into place and excess cement was removed. Cement was allowed to harden. Once the cement had hardened, knee was searched for excess cement and a few small pieces were found. Posterior condyles were each injected with 7.5 cc of 0.25% Marcaine with epinephrine and lateral gutter was injected with an additional 5 cc. The knee was copiously pulse lavaged. She was trialed with the 10 spacer again and had the same wonderful motion and stability. Patella tracking was perfect. 10 Polyethylene was then snapped into place. The knee was again copiously pulse lavaged and parapatellar arthrotomy was repaired using interrupted #1 Vicryl sutures. Tourniquet was let down and no significant bleeding was encountered. Subcutaneous tissue was reapproximated using 2-0 Vicryl. Skin was closed using gwen. Sterile dressing and a Cryo/Cuff were applied. The patient was then awakened stable on transfer to the recovery room. [id number]/CPS #: [id number] JEN
[2018-09-11] MEDS: oxyCODONE/Acetamin 5/325 MG* TAB PO PRN ×5 (01:35→22:51)
[2018-09-11] MEDS: oxyCODONE TAB* 5 MG TAB PO PRN ×3 (03:46→15:31)
[2018-09-11] MEDS: D5W 1/2 NS 1000 ML BAG* 1,000 ML IV SCH (05:52)
[2018-09-11] MEDS: Levothyroxine TAB* 75 MCG TAB PO SCH (06:12)
[2018-09-11] MEDS: Morphine TAB Extended Release (*) 15 MG TAB.ER PO PRN ×2 (06:12→19:26)
[2018-09-11] MEDS: Acetaminophen TAB* 325 MG PO SCH ×3 (06:24→22:54)
[2018-09-11 06:49] LABS: Hematocrit 27 % (33-41); Hemoglobin 8.7 g/dL (12.0-16.0); Mean Platelet Volume 9.8 fL (7.4-10.4); Platelet Count 130 10^3/uL (150-450)
[2018-09-11 06:58] LABS: INR 1.08 (0.77-1.02)
[2018-09-11 07:05] LABS: BUN/Creatinine Ratio 16.9 (8-20); Calcium 8.5 mg/dL (8.6-10.3); EGFR African American 90.2 (>60); EGFR Non-African American 74.5 (>60); Potassium 4.4 mmol/L (3.5-5.0)
[2018-09-11] MEDS: Docusate CAP* 100 MG PO SCH ×2 (08:20→22:54)
[2018-09-11] MEDS: amLODIPine TAB* 5 MG PO SCH (08:21)
[2018-09-11] MEDS: Carvedilol TAB* 6.25 MG PO SCH ×2 (08:21→22:51)
[2018-09-11] MEDS: ARIPiprazole TAB* 2 MG PO SCH (08:21)
[2018-09-11] MEDS: Diazepam TAB(*) 10 MG PO SCH ×3 (08:21→22:51)
[2018-09-11] MEDS: Aspirin EC TAB* 81 MG TAB.EC PO SCH (08:21)
[2018-09-11] MEDS: Magnesium Hydroxide LIQ* 30 ML UDC PO SCH ×2 (08:22→22:54)
--- NOTE | 2018-09-11 10:04 | PN ---
Progress Note - Progress Note Date of Service: 09/11/18 SOAP: Subjective: []Patient seen and examined at bedside. She feels well, her pain is well controlled. She feels comfortable with her current pain med orders and understands to use IV morphine only for severe breakthrough pain. Denies CP, SOB , dizziness, nausea. Objective: []General: Well appearing, alert, NAD, carrying on appropriate conversation RLE: Right knee dressing CDI, thigh is soft, DF/PF intact, DP2+, sensation intact to light touch distally Calves are supple and nontender without erythema, edema or palpable cords Assessment: []POD 1 sp RTK Plan: []WBAT PT/OT Romano: patient had request her romano stay in for 2 days though upon discussion with her this was due to incontinence rather than history of retention. She would prefer to use depends and a bedside commode rather than leave a romano in place. Heparin bridge to Coumadin. Coumadin 8 mg today Pending placement at rehab, prefers [facility] Vital Signs Temp 97.5 F 09/11/18 07:42 Pulse 68 09/11/18 07:42 Resp 20 09/11/18 08:21 BP 110/63 09/11/18 07:42 Pulse Ox 97 09/11/18 08:00 Intake & Output 09/10/18 09/11/18 09/11/18 18:59 06:59 18:59 Intake Total 2320 1040 Output Total 575 2150 Balance 1745 -1110 Weight 209 lb Intake: IV Fluids 2000 180 ABX - VANCOMYCIN 180 lr 2000 Oral 320 860 Output: Romano 575 2150 Other: # Bowel Movements 0 Laboratory Last Values Hgb 8.7 g/dL (12.0-16.0) L 09/11/18 06:16 Hct 27 % (33-41) L 09/11/18 06:16 Plt Count 130 10^3/uL (150-450) L 09/11/18 06:16 MPV 9.8 fL (7.4-10.4) 09/11/18 06:16 INR (Anticoag Therapy) 1.08 (0.77-1.02) H 09/11/18 06:16 Sodium 139 mmol/L (135-145) 09/11/18 06:16 Potassium 4.4 mmol/L (3.5-5.0) 09/11/18 06:16 Chloride 110 mmol/L (101-111) 09/11/18 06:16 Carbon Dioxide 24 mmol/L (22-32) 09/11/18 06:16 Anion Gap 5 mmol/L (2-11) 09/11/18 06:16 BUN 13 mg/dL (6-24) 09/11/18 06:16 Creatinine 0.77 mg/dL (0.51-0.95) 09/11/18 06:16 Est GFR ( Amer) 90.2 (>60) 09/11/18 06:16 Est GFR (Non-Af Amer) 74.5 (>60) 09/11/18 06:16 BUN/Creatinine Ratio 16.9 (8-20) 09/11/18 06:16 Glucose 154 mg/dL (70-100) H 09/11/18 06:16 Calcium 8.5 mg/dL (8.6-10.3) L 09/11/18 06:16
[2018-09-11] MEDS: Vancomycin(*) 1,250 MG in NS 0.9% 250 ML* 250 ML IVPB SCH ×2 (10:28→22:55)
[2018-09-11] MEDS: Heparin VIAL(*) 5000 UNITS/ML VIAL (FIVE THOUSAND) SUBCUT SCH ×2 (14:22→22:53)
[2018-09-11] MEDS ORDERED: Warfarin TAB(*) 4 MG PO ONE (17:00)
[2018-09-11] MEDS: Morphine 4 MG/ML VIAL (1 ml) 4 MG/ML VIAL IV PRN ×3 (17:23→23:03)
[2018-09-11] MEDS: Cyclobenzaprine TAB* 10 MG PO PRN (18:18)
--- NOTE | 2018-09-11 19:12 | PN ---
Subjective Date of Service: 09/11/18 Interval History: Patient is post-op day 1 from right TKR. She has pain since PT worked with her. She was incontinent of urine in chair, wants to get back into bed. Family History: Unchanged from Admission Social History: Unchanged from Admission Past Medical History: Unchanged from Admission Objective Active Medications: Acetaminophen (Tylenol Tab*) 975 mg PO Q8H [facility] Last Admin: 09/11/18 14:25 Dose: Not Given Albuterol (Ventolin Hfa Inhaler*) 1 puff INH QID PRN PRN Reason: SOB/WHEEZING Amlodipine Besylate (Norvasc Tab*) 5 mg PO QAM [facility] Last Admin: 09/11/18 08:21 Dose: 5 mg Aripiprazole (Abilify Tab*) 2 mg PO QAM [facility] Last Admin: 09/11/18 08:21 Dose: 2 mg Aspirin (Aspirin Ec Tab*) 81 mg PO QAM [facility] Last Admin: 09/11/18 08:21 Dose: 81 mg Carvedilol (Coreg Tab*) 6.25 mg PO BID [facility] Last Admin: 09/11/18 08:21 Dose: 6.25 mg Cyclobenzaprine HCl (Flexeril Tab*) 5 mg PO TID PRN PRN Reason: SPASMS Last Admin: 09/11/18 18:18 Dose: 5 mg Diazepam (Valium Tab(*)) 10 mg PO TID [facility] Last Admin: 09/11/18 14:22 Dose: 10 mg Diphenhydramine HCl (Benadryl Iv*) 25 mg IV Q6H PRN PRN Reason: itching Diphenhydramine HCl (Benadryl Po*) 25 mg PO Q6H PRN PRN Reason: itching Diphenhydramine HCl (Benadryl Liq*) 12.5 mg PO BEDTIME [facility] Last Admin: 09/10/18 21:25 Dose: 12.5 mg Docusate Sodium (Colace Cap*) 100 mg PO BID [facility] Last Admin: 09/11/18 08:20 Dose: 100 mg Famotidine (Pepcid Tab*) 20 mg PO BEDTIME [facility]; Protocol Last Admin: 09/10/18 21:26 Dose: 20 mg Gabapentin (Neurontin Cap(*)) 100 mg PO BEDTIME PRN PRN Reason: feet burning Heparin Sodium (Porcine) (Heparin Vial(*)) 5,000 units SUBCUT Q8HR [facility] Last Admin: 09/11/18 14:22 Dose: 5,000 units Hydroxyzine HCl (Atarax Tab*) 50 mg PO BEDTIME [facility] Last Admin: 09/10/18 21:26 Dose: 50 mg Dextrose/Sodium Chloride (D5w 1/2 Ns 1000 Ml Bag*) 1,000 mls @ 100 mls/hr IV PER RATE [facility] Last Admin: 09/11/18 05:52 Dose: 100 mls/hr Vancomycin HCl 1,250 mg/ (Sodium Chloride) 250 mls @ 166.667 mls/hr IVPB Q12H [facility] Stop: 09/11/18 23:29 Last Admin: 09/11/18 10:28 Dose: 166.667 mls/hr Levalbuterol HCl (Xopenex 0.63mg/3ml Neb*) 0.63 mg INH ONCE PRN PRN Reason: SOB/WHEEZING Levothyroxine Sodium (Synthroid Tab*) 75 mcg PO 0600 [facility] Last Admin: 09/11/18 06:12 Dose: 75 mcg Magnesium Hydroxide (Milk Of Magnesia Liq*) 30 ml PO BID [facility] Last Admin: 09/11/18 08:22 Dose: Not Given Magnesium Hydroxide (Milk Of Magnesia Liq*) 30 ml PO Q6H PRN PRN Reason: constipation Mirtazapine (Remeron Tab*) 45 mg PO BEDTIME [facility] Last Admin: 09/10/18 21:27 Dose: 45 mg Morphine Sulfate (Morphine 4 Mg/Ml Vial (1 Ml)) 2 mg IV Q2H PRN PRN Reason: PAIN - BREAKTHROUGH Last Admin: 09/11/18 17:23 Dose: 2 mg Morphine Sulfate (Ms Contin(*)) 15 mg PO Q12H PRN PRN Reason: PAIN Last Admin: 09/11/18 06:12 Dose: 15 mg Ondansetron HCl (Zofran Inj*) 4 mg IV Q6H PRN PRN Reason: nausea Ondansetron HCl (Zofran Odt Tab*) 4 mg PO Q6H PRN PRN Reason: NAUSEA Oxycodone HCl (Roxycodone Tab*) 5 mg PO Q4H PRN PRN Reason: PAIN - SEVERE Last Admin: 09/11/18 15:31 Dose: 5 mg Oxycodone/Acetaminophen (Percocet 5/325 Tab*) 2 tab PO Q4H PRN PRN Reason: PAIN - SEVERE Last Admin: 09/11/18 18:15 Dose: 2 tab Oxycodone/Acetaminophen (Percocet 5/325 Tab*) 1 tab PO Q4H PRN PRN Reason: PAIN - MODERATE Pharmacy Consult (Vancomycin Per Pharmacy*) 1 note FOLLOW UP .VANC PER PHARMACY JAZMIN Zolpidem Tartrate (Ambien Tab*) 10 mg PO BEDTIME PRN PRN Reason: INSOMNIA Vital Signs - 8 hr 09/11/18 09/11/18 09/11/18 11:33 12:55 14:22 Temperature 36.6 C Pulse Rate 75 Respiratory 16 18 20 Rate Blood Pressure 111/96 (mmHg) O2 Sat by Pulse 97 Oximetry 09/11/18 09/11/18 09/11/18 14:25 15:25 15:31 Temperature 36.9 C Pulse Rate 91 Respiratory 18 20 18 Rate Blood Pressure 144/58 (mmHg) O2 Sat by Pulse 95 Oximetry 09/11/18 09/11/18 09/11/18 16:00 17:23 18:04 Temperature Pulse Rate Respiratory 18 18 Rate Blood Pressure (mmHg) O2 Sat by Pulse 95 Oximetry 09/11/18 09/11/18 09/11/18 18:15 18:18 19:02 Temperature Pulse Rate Respiratory 18 20 20 Rate Blood Pressure (mmHg) O2 Sat by Pulse Oximetry Oxygen Devices in Use Now: None Appearance: tearful, alert Respiratory: Symmetrical Chest Expansion and Respiratory Effort, Clear to Auscultation Cardiovascular: RRR, - - 2/6 systolic murmur Abdominal: NL Sounds; No Tenderness; No Distention Neurological: Alert and Oriented x 3 Lines/Tubes/Other Access: Clean, Dry and Intact Peripheral IV Nutrition: Taking PO's Result Diagrams: 09/11/18 06:16 09/11/18 06:16 Assess/Plan/Problems-Billing Assessment: 68 year old with elective TKR - Patient Problems (1) Status post total right knee replacement Current Visit: Yes Status: Acute Priority: High Code(s): Z96.651 - PRESENCE OF RIGHT ARTIFICIAL KNEE JOINT SNOMED Code(s): 9845801501118 Comment: Progressing toward SNF-rehab per ortho management (2) Hypertension Current Visit: No Status: Acute Priority: Medium Code(s): I10 - ESSENTIAL (PRIMARY) HYPERTENSION SNOMED Code(s): 85614458 Comment: -BP reasonably controlled -continue present managment (3) TAWANNA (obstructive sleep apnea) Current Visit: No Status: Acute Priority: Medium Code(s): G47.33 - OBSTRUCTIVE SLEEP APNEA (ADULT) (PEDIATRIC) SNOMED Code(s): 53907342 Comment: -CPAP plus supplemental O2 Status and Disposition: [facility] in 1-2 days
[2018-09-11] MEDS: diPHENhydraMINE LIQ* 12.5 MG/5 ML UDC PO SCH (22:49)
[2018-09-11] MEDS: Famotidine TAB* 20 MG PO SCH (22:50)
[2018-09-11] MEDS: Mirtazapine TAB* 15 MG PO SCH (22:50)
[2018-09-11] MEDS: hydrOXYzine HCL TAB* 50 MG PO SCH (22:50)
[2018-09-12] MEDS: oxyCODONE TAB* 5 MG TAB PO PRN ×3 (00:55→09:43)
[2018-09-12] MEDS: Cyclobenzaprine TAB* 10 MG PO PRN ×2 (03:03→10:59)
[2018-09-12] MEDS: oxyCODONE/Acetamin 5/325 MG* TAB PO PRN ×3 (03:03→11:38)
[2018-09-12] MEDS: Levothyroxine TAB* 75 MCG TAB PO SCH (05:17)
[2018-09-12] MEDS: Morphine 4 MG/ML VIAL (1 ml) 4 MG/ML VIAL IV PRN (05:18)
[2018-09-12] MEDS: Heparin VIAL(*) 5000 UNITS/ML VIAL (FIVE THOUSAND) SUBCUT SCH (05:22)
[2018-09-12 06:03] LABS: Hematocrit 28 % (33-41); Hemoglobin 9.2 g/dL (12.0-16.0); Mean Platelet Volume 9.6 fL (7.4-10.4); Platelet Count 121 10^3/uL (150-450)
[2018-09-12 06:07] LABS: INR 1.96 (0.77-1.02)
[2018-09-12] MEDS: Acetaminophen TAB* 325 MG PO SCH ×2 (06:14→12:58)
[2018-09-12] MEDS: Diazepam TAB(*) 10 MG PO SCH (07:42)
[2018-09-12] MEDS: amLODIPine TAB* 5 MG PO SCH (07:42)
[2018-09-12] MEDS: Docusate CAP* 100 MG PO SCH (07:42)
[2018-09-12] MEDS: Morphine TAB Extended Release (*) 15 MG TAB.ER PO PRN (07:42)
[2018-09-12] MEDS: Aspirin EC TAB* 81 MG TAB.EC PO SCH (07:42)
[2018-09-12] MEDS: ARIPiprazole TAB* 2 MG PO SCH (07:42)
[2018-09-12] MEDS: Carvedilol TAB* 6.25 MG PO SCH (07:42)
[2018-09-12] MEDS: Magnesium Hydroxide LIQ* 30 ML UDC PO SCH (07:44)
--- NOTE | 2018-09-12 11:32 | DS ---
Orthopedic Discharge Summary - Discharge Summary Date of Admission:09/10/18 Date of Discharge: 09/12/18 Date of Surgery: 09/10/18 dr person Attending Orthopedic Provider: dr person Pre-operative Diagnosis: right knee osteoarthritis Operative Procedure: right total knee arthroplasty Condition of Patient: stable History: JENNIFER MENDEZ is a 68 year old F with years of increasingly severe right knee pain. Patient has failed conservative management and has elected to undergo a right total knee replacement Hospital Course: JENNIFER was admitted to [facility] on 09/10/18. Patient underwent a right total knee arthroplasty without complication followed by a brief recovery in PACU and transfer to the Short Stay Surgical Unit in stable condition. Our hospitalist service, physical therapy and occupational therapy also participated in this patients care. Post-op day 1: patient was alert and in no acute distress. Dressing was clean, dry and intact. Operative extremity dorsiflexion and plantarflexion intact, sensation intact to light touch distally, DP2+. Post-op day two: dressing was changed, incision was clean , dry and intact. Patient was deemed to be medically and orthopedically stable for discharge home. Physical therapy goals were met. Discharge Medications Medication Instructions Recorded Confirmed Type Carvedilol TAB* [Coreg TAB*] 6.25 mg PO BID 10/05/16 09/10/18 History Diazepam TAB(*) [Valium TAB(*)] 10 mg PO TID 10/05/16 09/10/18 History Levothyroxine TAB* [Synthroid 75 75 mcg PO 0800 10/05/16 09/10/18 History MCG TAB*] Lisinopril TAB* [Prinivil TAB 10 20 mg PO BID 10/05/16 09/10/18 History MG*] Mirtazapine TAB* [Remeron TAB*] 45 mg PO BEDTIME 10/05/16 09/10/18 History amLODIPine TAB* [Norvasc 5 mg TAB*] 5 mg PO QAM 10/05/16 09/10/18 History hydrOXYzine HCL TAB* [Atarax TAB 50 mg PO BEDTIME 10/05/16 09/10/18 History 50 MG *] ARIPiprazole TAB* [Abilify 2 MG 2 mg PO QAM 05/24/18 09/10/18 History TAB*] Docusate Sodium 100 mg PO BID 05/24/18 09/10/18 History Gabapentin CAP(*) [Neurontin 100 100 mg PO BEDTIME PRN 05/24/18 09/10/18 History mg CAP(*)] Morphine TAB Extended Rel(*) [Ms 15 mg PO Q12H PRN MDD 2 tabs 05/24/18 09/10/18 History Contin(*)] Ranitidine TAB (NF) [Zantac TAB 150 mg PO BEDTIME 05/24/18 09/10/18 History (NF)] Zolpidem TAB* [Ambien*] 10 mg PO BEDTIME 05/24/18 09/10/18 History diphenhydrAMINE HCl 10 ml PO BEDTIME 05/24/18 09/10/18 History [Diphenhydramine HCl] oxyCODONE/Acetamin 10/325(NF) 1 - 2 tab PO Q4H PRN MDD 6 05/24/18 09/10/18 History [Percocet 10/325 (NF)] Aspirin [Adult Aspirin] 81 mg PO QAM 07/20/18 09/10/18 History Albuterol HFA INHALER* [Ventolin 1 - 2 puff INH QID PRN 08/20/18 09/10/18 History HFA Inhaler*] Oxygen 2 units .SEE ORDER BEDTIME 08/20/18 09/10/18 History Acetaminophen TAB* [Tylenol TAB*] 975 mg PO Q8H tab 09/11/18 Rx Warfarin TAB(*) [Coumadin TAB(*)] 2 mg PO DAILY 30 Days #90 tab 09/11/18 Rx Discharge to [facility] Discharge Instructions following Orthopedic Surgery: Activity: * Weight Bearing as tolerated * Continue physical therapy and occupational therapy exercises as shown * Start Physical therapy right away Wound care: * OK to shower on post-op day 3, no bathing, swimming, or submerging wound. * Use gentle soap, pat dry. Cover with gauze, ROSSY wrap or tape. * nurse to do wound checks. Call Orthopedic office for: * Increased drainage * Redness * Increased pain * Fever Go to ER with shortness of breath or chest pain. Diet: * Regular diet * Increase fluids and fiber to prevent constipation. * Continue to use stool softeners, call office if no bowel motion within 48 hours. Medications See Home Medication List in your packet for medications that you should take after discharge. DVT Prophylaxis for 30 days post op Coumadin Dosing: * Please note that you have been given 2 mg tablets. * [facility] staff to draw blood work for INR on Monday and . * You will be provided with dose instructions on Mondays and . * If you do not receive dosing instruction on dosing, please call our office right away. Please tyler dosing instructions on your calendar as they are provided to you. * Dosin mg 09/12 * 09/13 Recheck INR blood draw for further dosing instructions. Call orthopedic office if you do not receive dosing instructions. * please recheck platelets 09/13 last value 121 on 09/12 Pain Control: Percocet 5/325 mg 1-2 tabs by mouth every 4-6 hours as needed for pain. Maximum of 10 tabs per day. Hold all narcocitcs for sedation, wean off as soon as able. Please note that Percocet contains Tylenol (acetaminophen). Maximum daily dose of Tylenol is 4000 mg from all sources. Antibiotics are required prior to any dental work. FOLLOW UP: Follow up with [Janie] in 4 weeks, call for appointment Please call our office with any questions or concerns ([phone])
[2018-09-12 11:55] VITALS: BP 147/77
--- NOTE | 2018-09-12 12:38 | PN ---
Progress Note - Progress Note Date of Service: 09/12/18 SOAP: Subjective: [] Pt seen at bedside. She is feeling well and desires DC to [facility]. Denies CP, SOB, dizziness, nausea. Objective: []General: Well appearing, alert, NAD RLE: Right knee dressing changed, incision is CDI, thigh is soft, DF/PF intact, DP2+, sensation intact to light touch distally Calves are supple and nontender without erythema, edema or palpable cords Assessment: []POD 2 sp RTK Plan: []WBAT PT/OT Heparin bridge to Coumadin. Coumadin 4 mg today and recheck INR tomorrow for further dosing instruction DC to [facility] today PLT 121 should be rechecked tomorrow at [facility] Vital Signs Temp 98.6 F 09/12/18 08:05 Pulse 91 09/12/18 08:05 Resp 18 09/12/18 11:58 BP 147/77 09/12/18 08:05 Pulse Ox 96 09/12/18 08:05 Intake & Output 09/11/18 09/12/18 09/12/18 18:59 06:59 18:59 Intake Total 1525 870 Output Total 1150 1250 650 Balance 375 -380 -650 Intake: IV Fluids 845 320 ABX - VANCOMYCIN 280 300 D5W 1/2 NS 565 NS flush 20 Oral 680 550 Output: Urine 550 1250 650 [place] 600 Other: Estimated Void Medium Large # Voids 1 1 Laboratory Last Values Hgb 9.2 g/dL (12.0-16.0) L 09/12/18 05:30 Hct 28 % (33-41) L 09/12/18 05:30 Plt Count 121 10^3/uL (150-450) L 09/12/18 05:30 MPV 9.6 fL (7.4-10.4) 09/12/18 05:30 INR (Anticoag Therapy) 1.96 (0.77-1.02) H 09/12/18 05:30 Sodium 139 mmol/L (135-145) 09/11/18 06:16 Potassium 4.4 mmol/L (3.5-5.0) 09/11/18 06:16 Chloride 110 mmol/L (101-111) 09/11/18 06:16 Carbon Dioxide 24 mmol/L (22-32) 09/11/18 06:16 Anion Gap 5 mmol/L (2-11) 09/11/18 06:16 BUN 13 mg/dL (6-24) 09/11/18 06:16 Creatinine 0.77 mg/dL (0.51-0.95) 09/11/18 06:16 Est GFR ( Amer) 90.2 (>60) 09/11/18 06:16 Est GFR (Non-Af Amer) 74.5 (>60) 09/11/18 06:16 BUN/Creatinine Ratio 16.9 (8-20) 09/11/18 06:16 Glucose 154 mg/dL (70-100) H 09/11/18 06:16 Calcium 8.5 mg/dL (8.6-10.3) L 09/11/18 06:16
== END 2018-09-12 13:00 | disposition swing bed (61) | DRG 470 ==
LOC: AA 09-10 07:56 → SSU 09-10 15:36
PROVIDERS: ADMIT Orthopaedic Surgery; ATTEND Orthopaedic Surgery
PROC: 0SRC0J9 Replacement of Right Knee Joint with Synthetic Substitute, Cemented, Open Approach (ICD-10-PCS; principal; 2018-09-10 10:30)
DX: M17.11 Unilateral primary osteoarthritis, right knee (principal); Z79.82 Long term (current) use of aspirin; I10 Essential (primary) hypertension; E66.9 Obesity, unspecified; I08.3 Combined rheumatic disorders of mitral, aortic and tricuspid valves; E55.9 Vitamin D deficiency, unspecified; E03.9 Hypothyroidism, unspecified; M54.9 Dorsalgia, unspecified; D64.9 Anemia, unspecified; R01.1 Cardiac murmur, unspecified; J45.909 Unspecified asthma, uncomplicated; I27.20 Pulmonary hypertension, unspecified; F41.9 Anxiety disorder, unspecified; G89.29 Other chronic pain; G43.909 Migraine, unspecified, not intractable, without status migrainosus; G47.30 Sleep apnea, unspecified; E78.5 Hyperlipidemia, unspecified; F32.9 Major depressive disorder, single episode, unspecified; Z82.49 Family history of ischemic heart disease and other diseases of the circulatory system; Z80.3 Family history of malignant neoplasm of breast; Z87.891 Personal history of nicotine dependence; Z68.36 Body mass index [BMI] 36.0-36.9, adult; Z86.14 Personal history of Methicillin resistant Staphylococcus aureus infection; Z90.89 Acquired absence of other organs; Z90.49 Acquired absence of other specified parts of digestive tract; Z86.73 Personal history of transient ischemic attack (TIA), and cerebral infarction without residual deficits; Z87.440 Personal history of urinary (tract) infections; R32 Unspecified urinary incontinence
CPT/HCPCS: 36415; 80048; 85014; 85018; 85049; 85610; 88305; 88311; A9270-GY; G8978-GP-CJ; G8979-GP-CI; G8987-GO-CJ; G8988-GO-CI; J1100; J1644; J1885; J2250; J2270; J2405; J2704; J2795; J3010; J3370

== ENCOUNTER 2020-07-01 09:52 | Inpatient (IN) ==
[2020-07-01] MEDS ORDERED: Ondansetron 4 mg VIAL 2 MG/ML 2 ml VIAL IV PRN (11:51)
[2020-07-01] MEDS ORDERED: Meropenem 2 GM in NS 0.9% 100 ml BAG 100 ML IVPB SCH (12:00)
[2020-07-01] MEDS ORDERED: Morphine ER 15 mg TAB ** extended release PO PRN (12:24)
[2020-07-01] MEDS ORDERED: Albuterol HFA INHALER 8 gm MDI INH PRN (12:24)
[2020-07-01] MEDS ORDERED: Magnesium Hydroxide LIQ 30 ML UDC PO PRN (12:24)
[2020-07-01] MEDS: Meropenem 1 GM PREMIX(*) 1 GM/50 ML BAG IV SCH ×2 (13:23→20:32)
[2020-07-01] MEDS ORDERED: HYDROmorphone 1 MG/1 ML SYRINGE IV SLOW PU ONE (16:01)
[2020-07-01] MEDS: oxyCODONE/Acetamin 5/325 mg TAB PO PRN ×2 (18:36→20:15)
[2020-07-01] MEDS: SACCHAROMYCES BOULARDII 250 MG PO SCH (20:36)
[2020-07-01] MEDS ORDERED: Heparin 5000 UNITS/ML 1 mL VIAL SUBCUT SCH (22:00)
[2020-07-02] MEDS: oxyCODONE/Acetamin 5/325 mg TAB PO PRN ×3 (02:38→19:40)
[2020-07-02] MEDS: Meropenem 1 GM PREMIX(*) 1 GM/50 ML BAG IV SCH ×3 (05:25→22:19)
[2020-07-02] MEDS ORDERED: Buffered Lidocaine 1% SYRIN 1 ml INTRADERM ONE ×2 (06:42→07:37)
[2020-07-02] MEDS ORDERED: Propofol 10 MG/ML 20 ML BTL ONE (07:11)
[2020-07-02] MEDS ORDERED: Lidocaine 2% PF 5 ML VIAL ONE (07:11)
[2020-07-02] MEDS ORDERED: Rocuronium 50 mg VIAL 10 mg/ml 5 ml VIAL (50 mg) ONE (07:11)
[2020-07-02] MEDS ORDERED: DiMENhydriNATE IV 50 mg/ml 1 ml VIAL ONE (07:11)
[2020-07-02] MEDS ORDERED: Ondansetron 4 mg VIAL 2 MG/ML 2 ml VIAL ONE (07:11)
[2020-07-02] MEDS ORDERED: fentaNYL 100 mcg/2 ml 50 MCG/ML VIAL ONE ×2 (07:12→09:37)
[2020-07-02] MEDS ORDERED: Midazolam 5 mg/5 ml VIAL 1 mg/ml 5 ml VIAL (5 mg) ONE (07:12)
[2020-07-02 07:34] LABS: ABS Eosinophils 0.1 10^3/ul (0-0.6); ABS Lymphocytes 1.1 10^3/ul (1.0-4.8); ABS Monocytes 0.4 10^3/ul (0-0.8); Eosinophil % 3.6 %; Hematocrit 32 % (35-47); Hemoglobin 10.3 g/dL (12.0-16.0); Lymphocyte % 30.4 %; Mean Corpuscular HGB Conc 33 g/dL (31-36); Mean Corpuscular Hemoglobin 27 pg (27-31); Mean Corpuscular Volume 82 fL (80-97); Platelet Count 165 10^3/uL (150-450); Red Blood Count 3.84 10^6 /uL (3.70-4.87); Red Cell Distribution Width 17 % (10-15); White Blood Count 3.7 10^3/uL (3.5-10.8)
[2020-07-02] MEDS ORDERED: Famotidine IV 10 MG/ML 2 ml VIAL (20 mg) IV ONE (07:37)
[2020-07-02] MEDS ORDERED: Famotidine IV 10 MG/ML 2 ml VIAL (20 mg) ONE (07:38)
[2020-07-02 07:50] LABS: BUN/Creatinine Ratio 17.2 (8-20); Calcium 9.8 mg/dL (8.6-10.3); EGFR Non-African American 91.7 (>60); Potassium 4.4 mmol/L (3.5-5.0)
[2020-07-02] MEDS ORDERED: Lactated Ringers 1000 ml BAG 1,000 ML IV SCH ×2 (08:00→15:00)
[2020-07-02] MEDS ORDERED: Ketamine HCL 50 mg/ml 10 ml VIAL (500 MG) ONE (08:06)
[2020-07-02] MEDS ORDERED: Phenylephrine 40 mcg/mL 10mL (400mcg) SYRINGE ONE (08:28)
[2020-07-02] MEDS ORDERED: EPHEDrine (Pressors) 50 MG/ML VIAL ONE (08:35)
[2020-07-02] MEDS ORDERED: Sugammadex 500 MG/5 ML 5 ml VIAL IV PUSH ONE (08:52)
[2020-07-02] MEDS ORDERED: Naloxone 0.4 mg VIAL 0.4 mg/ml 1 ml VIAL IV PRN (09:22)
[2020-07-02] MEDS ORDERED: Ondansetron 4 mg VIAL 2 MG/ML 2 ml VIAL IV PRN (09:22)
[2020-07-02] MEDS ORDERED: fentaNYL 100 mcg/2 ml 50 MCG/ML VIAL IV PRN (09:22)
[2020-07-02] MEDS: SACCHAROMYCES BOULARDII 250 MG PO SCH ×2 (12:02→21:13)
[2020-07-02] MEDS: Heparin 5000 UNITS/ML 1 mL VIAL SUBCUT SCH (19:40)
[2020-07-02] MEDS: Morphine ER 15 mg TAB ** extended release PO SCH (19:41)
[2020-07-03] MEDS: oxyCODONE/Acetamin 5/325 mg TAB PO PRN ×4 (03:03→19:39)
[2020-07-03] MEDS: Meropenem 1 GM PREMIX(*) 1 GM/50 ML BAG IV SCH ×2 (05:32→16:40)
[2020-07-03] MEDS: Heparin 5000 UNITS/ML 1 mL VIAL SUBCUT SCH ×3 (05:32→21:11)
[2020-07-03] MEDS: Morphine ER 15 mg TAB ** extended release PO SCH ×2 (08:13→21:09)
[2020-07-03] MEDS: SACCHAROMYCES BOULARDII 250 MG PO SCH ×2 (08:17→21:10)
[2020-07-03] MEDS ORDERED: Buffered Lidocaine 1% SYRIN 1 ml INTRADERM ONE ×2 (14:33→15:28)
[2020-07-03] MEDS ORDERED: Zosyn per Pharmacy NOTE FOLLOW UP SCH (15:00)
[2020-07-03] MEDS: Piperacillin/Tazobac ADVAN 3.375 GM in NS 0.9% 100 ml BAG 100 ML IV SCH ×2 (16:39→21:11)
[2020-07-03] MEDS: Piperacillin/Tazobac ADVAN 3.375 GM in NS 0.9% 100 ml BAG 100 ML IV ONE ×2 (16:39→16:46)
[2020-07-03] MEDS: NS 0.9% 1000 ml BAG 1,000 ML IV SCH (16:40)
[2020-07-04] MEDS: Heparin 5000 UNITS/ML 1 mL VIAL SUBCUT SCH ×3 (05:21→20:07)
[2020-07-04] MEDS: Piperacillin/Tazobac ADVAN 3.375 GM in NS 0.9% 100 ml BAG 100 ML IV SCH ×3 (05:21→21:49)
[2020-07-04] MEDS: oxyCODONE/Acetamin 5/325 mg TAB PO PRN ×3 (05:28→19:31)
[2020-07-04 05:56] LABS: ABS Eosinophils 0.2 10^3/ul (0-0.6); ABS Lymphocytes 1.3 10^3/ul (1.0-4.8); ABS Monocytes 0.4 10^3/ul (0-0.8); ABS Neutrophils 1.5 10^3/ul (1.5-7.7); Hematocrit 27 % (35-47); Hemoglobin 8.7 g/dL (12.0-16.0); Lymphocyte % 38.9 %; Mean Corpuscular HGB Conc 32 g/dL (31-36); Mean Corpuscular Hemoglobin 27 pg (27-31); Mean Corpuscular Volume 83 fL (80-97); Mean Platelet Volume 9.7 fL (7.4-10.4); Platelet Count 161 10^3/uL (150-450); Red Blood Count 3.25 10^6 /uL (3.70-4.87); Red Cell Distribution Width 17 % (10-15); White Blood Count 3.4 10^3/uL (3.5-10.8)
[2020-07-04 06:07] LABS: Albumin 2.9 g/dL (3.2-5.2); Albumin/Globulin Ratio 1.2 (1-3); BUN/Creatinine Ratio 15.3 (8-20); Calcium 9.1 mg/dL (8.6-10.3); EGFR African American 96.9 (>60); EGFR Non-African American 80.1 (>60); Globulin 2.4 g/dL (2-4); Potassium 4.2 mmol/L (3.5-5.0); Total Bilirubin 0.4 mg/dL (0.2-1.0); Total Protein 5.3 g/dL (6.4-8.9)
[2020-07-04] MEDS: NS 0.9% 1000 ml BAG 1,000 ML IV SCH ×2 (06:22→19:34)
[2020-07-04] MEDS: Morphine ER 15 mg TAB ** extended release PO SCH ×2 (09:42→20:06)
[2020-07-04] MEDS: SACCHAROMYCES BOULARDII 250 MG PO SCH ×2 (09:43→20:07)
[2020-07-05] MEDS: oxyCODONE/Acetamin 5/325 mg TAB PO PRN ×3 (03:05→17:05)
[2020-07-05] MEDS: Heparin 5000 UNITS/ML 1 mL VIAL SUBCUT SCH ×3 (05:04→21:19)
[2020-07-05] MEDS: Piperacillin/Tazobac ADVAN 3.375 GM in NS 0.9% 100 ml BAG 100 ML IV SCH ×3 (05:04→21:20)
[2020-07-05 06:50] LABS: ABS Eosinophils 0.2 10^3/ul (0-0.6); ABS Lymphocytes 1.3 10^3/ul (1.0-4.8); ABS Monocytes 0.3 10^3/ul (0-0.8); Eosinophil % 4.1 %; Hematocrit 28 % (35-47); Hemoglobin 9.2 g/dL (12.0-16.0); Lymphocyte % 34.4 %; Mean Corpuscular HGB Conc 33 g/dL (31-36); Mean Corpuscular Hemoglobin 28 pg (27-31); Mean Corpuscular Volume 84 fL (80-97); Mean Platelet Volume 9.3 fL (7.4-10.4); Nucleated Red Blood Cells % 0.1; Platelet Count 162 10^3/uL (150-450); Red Blood Count 3.32 10^6 /uL (3.70-4.87); Red Cell Distribution Width 17 % (10-15); White Blood Count 3.9 10^3/uL (3.5-10.8)
[2020-07-05 07:05] LABS: Albumin 2.9 g/dL (3.2-5.2); Albumin/Globulin Ratio 1.3 (1-3); BUN/Creatinine Ratio 14.1 (8-20); Calcium 8.8 mg/dL (8.6-10.3); EGFR African American 98.5 (>60); EGFR Non-African American 81.4 (>60); Globulin 2.3 g/dL (2-4); Potassium 3.6 mmol/L (3.5-5.0); Total Bilirubin 0.3 mg/dL (0.2-1.0); Total Protein 5.2 g/dL (6.4-8.9)
[2020-07-05] MEDS: Morphine ER 15 mg TAB ** extended release PO SCH ×2 (08:31→21:16)
[2020-07-05] MEDS: SACCHAROMYCES BOULARDII 250 MG PO SCH ×2 (08:32→21:21)
[2020-07-05] MEDS: NS 0.9% 1000 ml BAG 1,000 ML IV SCH ×2 (08:47→21:25)
[2020-07-06] MEDS: oxyCODONE/Acetamin 5/325 mg TAB PO PRN ×4 (00:06→15:43)
[2020-07-06] MEDS: Heparin 5000 UNITS/ML 1 mL VIAL SUBCUT SCH ×3 (04:55→20:47)
[2020-07-06] MEDS: Piperacillin/Tazobac ADVAN 3.375 GM in NS 0.9% 100 ml BAG 100 ML IV SCH ×3 (04:56→20:47)
[2020-07-06] MEDS: Morphine ER 15 mg TAB ** extended release PO SCH ×2 (09:32→20:44)
[2020-07-06 09:43] LABS: C Reactive Protein 7.38 mg/L (<8.01)
[2020-07-06] MEDS: SACCHAROMYCES BOULARDII 250 MG PO SCH ×2 (09:55→20:46)
[2020-07-07] MEDS: oxyCODONE/Acetamin 5/325 mg TAB PO PRN ×4 (02:00→21:07)
[2020-07-07] MEDS: Piperacillin/Tazobac ADVAN 3.375 GM in NS 0.9% 100 ml BAG 100 ML IV SCH ×3 (05:20→21:11)
[2020-07-07] MEDS: Heparin 5000 UNITS/ML 1 mL VIAL SUBCUT SCH ×3 (05:21→21:10)
[2020-07-07] MEDS: Morphine ER 15 mg TAB ** extended release PO SCH ×2 (09:47→21:06)
[2020-07-07] MEDS: SACCHAROMYCES BOULARDII 250 MG PO SCH (09:48)
[2020-07-08] MEDS: oxyCODONE/Acetamin 5/325 mg TAB PO PRN ×4 (04:49→20:50)
[2020-07-08] MEDS: Heparin 5000 UNITS/ML 1 mL VIAL SUBCUT SCH ×3 (04:57→20:50)
[2020-07-08] MEDS: Piperacillin/Tazobac ADVAN 3.375 GM in NS 0.9% 100 ml BAG 100 ML IV SCH ×3 (04:59→20:57)
[2020-07-08] MEDS: Morphine ER 15 mg TAB ** extended release PO SCH ×2 (08:39→20:51)
[2020-07-08] MEDS ORDERED: oxyCODONE/Acetamin 5/325 mg TAB PO PRN (15:16)
[2020-07-09] MEDS: oxyCODONE/Acetamin 5/325 mg TAB PO PRN ×4 (03:07→18:41)
[2020-07-09] MEDS: Heparin 5000 UNITS/ML 1 mL VIAL SUBCUT SCH ×3 (05:07→20:48)
[2020-07-09] MEDS: Piperacillin/Tazobac ADVAN 3.375 GM in NS 0.9% 100 ml BAG 100 ML IV SCH ×3 (05:08→20:53)
[2020-07-09] MEDS: Morphine ER 15 mg TAB ** extended release PO SCH ×2 (09:17→20:45)
[2020-07-09] MEDS: diPHENhydraMINE 25 mg TAB PO PRN ×2 (12:33→20:51)
[2020-07-10] MEDS: oxyCODONE/Acetamin 5/325 mg TAB PO PRN ×4 (03:02→20:09)
[2020-07-10] MEDS: Piperacillin/Tazobac ADVAN 3.375 GM in NS 0.9% 100 ml BAG 100 ML IV SCH ×3 (05:51→21:45)
[2020-07-10] MEDS: Heparin 5000 UNITS/ML 1 mL VIAL SUBCUT SCH ×3 (05:51→21:51)
[2020-07-10] MEDS: Morphine ER 15 mg TAB ** extended release PO SCH ×2 (08:37→21:48)
[2020-07-10] MEDS: diPHENhydraMINE 25 mg TAB PO PRN ×2 (08:43→19:36)
[2020-07-11] MEDS: Piperacillin/Tazobac ADVAN 3.375 GM in NS 0.9% 100 ml BAG 100 ML IV SCH (05:36)
[2020-07-11] MEDS: Heparin 5000 UNITS/ML 1 mL VIAL SUBCUT SCH (05:42)
[2020-07-11] MEDS: oxyCODONE/Acetamin 5/325 mg TAB PO PRN (08:04)
[2020-07-11 08:46] VITALS: BP 138/71
[2020-07-11] MEDS: Morphine ER 15 mg TAB ** extended release PO SCH (09:42)
[2020-07-11] MEDS: diPHENhydraMINE 25 mg TAB PO PRN (09:47)
== END 2020-07-11 12:28 | disposition home or self-care (01) | DRG 356 ==
LOC: MED 11:40 → SSU 07-02 11:18
PROVIDERS: ADMIT Hospitalist; ATTEND Internal Medicine

== ENCOUNTER 2024-02-26 07:43 | Observation (INO) ==
[~2024-02-26 07:43] MED LIST: NS 0.45% 1000 ml BAG 1,000 ML IV SCH; Naloxone 0.4 mg VIAL 0.4 mg/ml 1 ml VIAL IV PRN; Ondansetron 4 mg VIAL 2 MG/ML 2 ml VIAL IV PRN
[2024-02-26] MEDS ORDERED: Ondansetron 4 mg VIAL 2 MG/ML 2 ml VIAL ONE (08:15)
[2024-02-26] MEDS ORDERED: Dexamethasone IV 4 MG/ML VIAL 1 ml VIAL ONE (08:15)
[2024-02-26] MEDS ORDERED: Rocuronium 50 mg VIAL 10 mg/ml 5 ml VIAL (50 mg) ONE (08:15)
[2024-02-26] MEDS ORDERED: Propofol 10 MG/ML 20 ML BTL ONE (08:15)
[2024-02-26] MEDS ORDERED: Lidocaine 2% PF 5 ML VIAL ONE ×2 (08:15→10:16)
[2024-02-26 08:27] LABS: Rapid COVID-19 Molecular Undetected (Undetected)
[2024-02-26] MEDS ORDERED: Famotidine IV 10 MG/ML 2 ml VIAL (20 mg) ONE (08:45)
[2024-02-26] MEDS ORDERED: Scopolamine 1 mg/72hr PATCH ONE (08:45)
[2024-02-26] MEDS ORDERED: ceFAZolin 2 GM PREMIX 2 GM/50 ML BAG ONE (08:45)
[2024-02-26] MEDS ORDERED: Thrombin 5,000 UNITS 1 APPLIC KIT - topical use - TOPICAL ONE (08:59)
[2024-02-26] MEDS ORDERED: Lidocaine 1% w EPI 1:100,000 MDV 20 ML VIAL ONE (08:59)
[2024-02-26] MEDS ORDERED: ceFAZolin VIAL VIAL ONE (09:00)
[2024-02-26] MEDS: Lactated Ringers 1000 ml BAG 1,000 ML IV SCH (09:14)
[2024-02-26] MEDS: Famotidine IV 10 MG/ML 2 ml VIAL (20 mg) IV SLOW PU ONE (09:14)
[2024-02-26] MEDS ORDERED: fentaNYL 100 mcg/2 ml 50 MCG/ML VIAL ONE ×2 (09:24→12:42)
[2024-02-26] MEDS ORDERED: Dextran 70/Hypromellose Tears Eye Drops 15 ml BTL (for Artificials Tears) BOTH EYES PRN (11:45)
[2024-02-26] MEDS ORDERED: Ondansetron 4 mg VIAL 2 MG/ML 2 ml VIAL IV PRN (11:45)
[2024-02-26] MEDS ORDERED: Senna TAB 8.6 mg TAB PO PRN (11:45)
[2024-02-26] MEDS ORDERED: Morphine 2 MG/ML SYRINGE IV PRN (11:45)
[2024-02-26] MEDS ORDERED: Albuterol HFA INHALER 8 gm MDI INH PRN (11:51)
[2024-02-26] MEDS: fentaNYL 100 mcg/2 ml 50 MCG/ML VIAL IV PRN (12:43)
[2024-02-26] MEDS ORDERED: Labetalol IV 5 MG/ML 20 ml VIAL ONE (13:09)
[2024-02-26] MEDS: Acetaminophen IV 1 GM/100ML 1,000 MG/100 ML BAG IV ONE (14:45)
[2024-02-26] MEDS: Buffered Lidocaine 1% SYRIN 1 ml INTRADERM ONE (14:45)
[2024-02-26] MEDS: Scopolamine 1 mg/72hr PATCH TRANSDERM ONE (14:46)
[2024-02-26] MEDS: Psyllium PAK PO SCH (20:28)
[2024-02-27] MEDS: Aspirin EC 81 mg TAB.EC (enteric coated) PO SCH (08:55)
[2024-02-27] MEDS ORDERED: Aspirin EC 81 mg TAB.EC (enteric coated) PO SCH (09:00)
[2024-02-28 09:30] VITALS: BP 104/77
== END 2024-02-28 11:30 | disposition home or self-care (01) ==
LOC: OR 07:43 → SSU 07:43
PROVIDERS: ADMIT Neurological Surgery; ATTEND Neurological Surgery